=== PATIENT | female | born 1995 | race Caucasian/White ===

== ENCOUNTER → 2023-04-11 11:05 | Outpatient (BNVA) | payer MEDICAID, SELFPAY | PROVIDERS: Visit Provider Physician Assistant ==

== ENCOUNTER 2023-04-13 08:08 | Outpatient (AMB) | payer OTHER, SELFPAY ==
--- NOTE | 2023-04-13 11:40 | A.OFFVIS_ITS ---
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 HPI Details Start time: 11.40am, End time: 12.13pm ?I spent 28 minutes speaking with the patient on the phone plus an additional 5 minutes reviewing and updating records for a total of 33 minutes HPI Comments History of Present Illness Details Previous weight loss efforts: self diet and exercise Wakes up: 5.30am, Sleeps: 9pm, naps: 12-1pm Breakfast: skips Lunch: occasionally at 1pm (sandwich) Dinner: 6.30pm (rice, meat, beans) Snacks: 2pm (chips with soda), 8pm (oreos and milk) Exercise: has a home treadmill and bike Fluids: Coffee: 1 cup/d (cream and sugar), tea: none, soda: none now, a lot before, juice: 1 glass per day, ETOH: none PFSH Medical History (Updated 04/13/23 @ 11:42 by Warren Dunn MD) Morbid obesity Surgical History (Updated 04/11/23 @ 11:43 by Ondina South CMA) No history of previous surgery Family History (Updated 04/11/23 @ 11:45 by Ondina South CMA) Mother Hypertension Fibromyalgia Arthritis Diabetes Father Family history unknown Daughter No problems noted. Daughter No problems noted. Son Autism Son No problems noted. Social History (Updated 04/11/23 @ 11:43 by Ondina South CMA) Alcohol intake: current Alcohol intake frequency: holidays/special occasions only Patient Tobacco Use Status: Never used Tobacco Assessment & Plan Assessment & Plan (1) Morbid obesity: Code(s): E66.01 - Morbid (severe) obesity due to excess calories Plan: 1.? Plan for lap sleeve gastrectomy. If diaphragmatic or ventral hernias are present at time of surgery, these will be repaired laparoscopically as well. 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 I emphasized the importance of close follow-up, adherence to instructions and good communication. 2. Nutritional counseling. Start with 2 plant-based organic Pure protein (buy at [employer], [employer], [employer], [facility]) shakes (1/2 scoop in 8oz low fat unsweetened almo nd milk each) at 8am-10am and 11am-1pm, 1 protein bar (Zone Perfect protein bars, buy at [employer], ?[employer], [facility], or [employer]) at 2pm-4pm, 1/2 bar at 5-6pm, dinner at 7pm (10 forks of protein and 10 forks of salad/vegetables) , 1/2 bar at 9-10pm and one more protein bar after dinner at 11pm-1am. 2. Nutritional counseling. Start with 2 CELEBRATE REBUILD protein (buy at hospital[facility] [employer] [facility]) shakes (ONE scoop EACH in 8oz low fat unsweetened almond milk each) at 7am-9am and 10am-12pm, 1 protein bar (CELEBRATE protein bars, buy at [facility] [employer] [facility]) at 2pm-4pm, dinner at 5pm (8 forks of protein and 8 forks of salad/vegetables) AND one more protein bar after dinner at 7pm-9pm. So you do 2 protein shakes, 2 protein bars and one meal per day. Meal to include lean meat (beef, fish, pork, turkey, chicken), or tunisian yogurt, or egg whites, or beans with a salad with olive oil and fruits (berries, pears, apples, kiwi). Avoid salt, breads, potatoes, rice, pasta, desserts. 3. Each shake would be drunk slowly, like coffee in a period of 2 hours. You may add your coffee into shakes, if flavors match. 4. Cut each bar in 4 pieces and eat each piece in 30min ?to make each bar last 2 hours. 5. I emphasized the importance of measuring accurately the food portion and measure it when serving the food in plate 6. The meal portions include 8 full-size forks of meat and 8 full-size forks of salad. You always eat the meat portion but you can replace up to 4 forks for salad/vegetables with rice, potatoes or pasta, or a fruit ?if you like. The less you do it the better weight loss will be. 7. One full-size fork is what it can be scooped on the fork without falling aside and not what can be bit with the fork. Use regular forks like those you find in a typical restaurant. 8.? Please send me weight measurements as soon as possible and then once a week. Always include your diet and exercise plan. 9. Start treadmill with an incline of 4.0 and speed of 3.0. Increase incline by 1 every 3 min to a max incline of 10.0, stay 3min at 8.0 and then return to 4.0 and repeat same steps until calorie goal is met. Goal is to burn 2000 calories per week on exercise, which means either 300 calories daily, or 400 calories 5 days per week, or 500 calories 4 days per week, or 650 calories 3 days per week. 10.?It is important of avoiding and for at least 18 months postoperatively and has been discussed at the infosession. 11. Goal is to lose at least 1.5-2lbs per week 12. Goal to lose 10% of your weight before surgery, which is about 24lbs. Ultimate weight goal: 216lbs before surgery 13. Please follow the diet plan exactly without any change. If you don't like something about the plan or you feel hungry you need to communicate with me so I can help you revise the plan. You should not change the plan yourself. Orders: Orders Insulin Today E66.01 - Morbid (severe) obesity due to excess calories Comprehensive Met. Panel Today E66.01 - Morbid (severe) obesity due to excess calories Vitamin B1 Today E66.01 - Morbid (severe) obesity due to excess calories Vitamin A Today E66.01 - Morbid (severe) obesity due to excess calories H Pylori Breath Test Today E66.01 - Morbid (severe) obesity due to excess calories Vitamin D 25-OH Total Today E66.01 - Morbid (severe) obesity due to excess calories ECG 12 lead EKG Today E66.01 - Morbid (severe) obesity due to excess calories Lipid Panel Today E66.01 - Morbid (severe) obesity due to excess calories IRON PROFILE Today E66.01 - Morbid (severe) obesity due to excess calories Complete Blood Count Auto Diff Today E66.01 - Morbid (severe) obesity due to excess calories Vitamin B12 and Folate Today E66.01 - Morbid (severe) obesity due to excess calories Zinc Today E66.01 - Morbid (severe) obesity due to excess calories C Reactive Protein Today E66.01 - Morbid (severe) obesity due to excess calories Ferritin Today E66.01 - Morbid (severe) obesity due to excess calories PTHI Today E66.01 - Morbid (severe) obesity due to excess calories TSH reflex Free T4 Today E66.01 - Morbid (severe) obesity due to excess calories Hemoglobin A1c Today E66.01 - Morbid (severe) obesity due to excess calories US abdomen comp w elastography Today E66.01 - Morbid (severe) obesity due to excess calories XR chest 2V Today E66.01 - Morbid (severe) obesity due to excess calories FL upper GI w air Today E66.01 - Morbid (severe) obesity due to excess calories Referrals Behavioral Health Referral E66.01 - Morbid (severe) obesity due to excess calories Nutrition/Dietitian Referral E66.01 - Morbid (severe) obesity due to excess calories Telehealth Telehealth Location of provider rendering services: practice address Location of patient: address on file Patient Identification confirmed using: Name, : Yes Telehealth method: voice only Patient verbally consented to treatment: Yes Patient verbally consented to billing insurance company: Yes Patient informed of any privacy concerns related to visit: Yes Minutes spent on Phone/Video with Pt.: 33 Coding Level of Care Code Tele New Pt Level 3 (85383) Diagnoses Morbid obesity E66.01 Time Spent (min) 33
[2023-04-13 12:05] VITALS: BMI 48.6
== END 2023-04-13 12:14 | disposition home or self-care (01) ==
LOC: HO.HBS 08:08
PROVIDERS: PCP Internal Medicine; Visit Provider Surgery
DX: E66.01 Morbid (severe) obesity due to excess calories (principal)
CPT/HCPCS: 99203

== ENCOUNTER → 2023-04-13 08:08 | Outpatient (BNVA) | payer OTHER, SELFPAY | PROVIDERS: PCP Internal Medicine; Visit Provider Surgery ==

== ENCOUNTER 2023-04-13 16:39 | Outpatient (REF) | payer OTHER, SELFPAY | END 2023-04-13 16:40 | disposition home or self-care (01) | LOC: HO.LNP 16:39 | PROVIDERS: Visit Provider Surgery | DX: Z13.89 Encounter for screening for other disorder (principal) ==

== ENCOUNTER 2023-04-16 10:10 | Outpatient (REF) | payer OTHER, SELFPAY ==
--- NOTE | ~2023-04-16 | XR_ITS ---
EXAMINATION: XR CHEST CLINICAL INFORMATION: Morbid (severe) obesity due to excess calories COMPARISON: None available. TECHNIQUE: 2 views of the chest were obtained. FINDINGS: No significant abnormality is noted involving the heart, lungs, mediastinum, bony thorax or soft tissues. XR/XR chest 2V IMPRESSION: Unremarkable examination.
[2023-04-16 10:39] LABS: MANUAL DIFF FLAG NO
[2023-04-16 11:12] LABS: Estimated Average Glucose 97 mg/dL
[2023-04-16 11:17] LABS: Basophils Percent Auto 0.8 % (0-2); Eosinophils Absolute Auto 0.2 X10*3/uL (0.0-0.4); Hematocrit 36.8 % (37.0-47.0); Hemoglobin 10.9 g/dl (12.0-16.0); Imm Gran Abs Auto 0.03 X10*3/uL (0.00-0.03); Imm Gran Pct Auto 0.6 % (0.0-0.4); Lymphocytes Absolute Auto 1.7 X10*3/uL (1.2-4.9); Lymphocytes Percent Auto 32.4 % (20-40); Mean Corpuscular HGB Conc 29.6 g/dl (31.0-35.0); Mean Corpuscular Hemoglobin 21.1 pg (27.0-33.0); Mean Corpuscular Volume 71.3 fL (80.0-98.0); Mean Platelet Volume 10.8 fL (9.4-12.3); Monocytes Absolute Auto 0.5 X10*3/uL (0.1-1.2); Monocytes Percent Auto 10.3 % (2-11); Neutrophils Absolute Auto 2.7 x10*3/uL (2.0-8.3); Neutrophils Percent Auto 51.9 % (45-73); Platelet Count 233 X10*3/uL (160-400); Red Blood Count 5.16 X10*6/uL (4.20-5.50); Red Cell Distribution Width 14.8 % (11.0-16.0); White Blood Count 5.2 X10*3/uL (4.8-10.8)
[2023-04-16 11:40] LABS: Alanine Aminotransferase 15 U/L (0-31); Albumin Level 4.1 g/dL (3.5-5.0); Alkaline Phosphatase 101 U/L (39-117); Anion Gap 11 (12-20); Aspartate Amino Transferase 14 U/L (5-31); Bilirubin Total 0.4 mg/dL (0.0-1.0); Blood Urea Nitrogen 12 mg/dL (9-16); C Reactive Protein 1.41 mg/dL (< or = 0.50); Calcium 8.9 mg/dL (8.4-10.2); Carbon Dioxide 24 mmol/L (22-29); Chloride 108 mmol/L (96-108); Cholesterol 146 mg/dL (<200); Estimated Glomerular Filt Rate > 60; Glucose Random 91 mg/dL (60-115); HDL Cholesterol 48 mg/dL (>40); Iron 46 mcg/dL (30-160); LDL Cholesterol Calculated 81 mg/dL (<100); Percent Iron Saturation 17 % (15-50); Potassium 3.9 mmol/L (3.3-5.1); Sodium 139 mmol/L (135-145); Total Iron Binding Capacity 276 mcg/dL (228-428); Total Protein 7.5 g/dL (6.5-8.0); Triglycerides 85 mg/dL (<150); Unsaturated Iron Binding 230 ug/dL
[2023-04-16 11:57] LABS: Ferritin 90 ng/mL (10-122); Insulin 14 uU/mL (2-29); TSH reflex Free T4 2.06 uIU/mL (0.32-4.0); Vitamin D 25-OH Total 13.6 ng/mL (>30)
[2023-04-16 12:06] LABS: Folate 5.6 ng/mL (> or = 4.0); Vitamin B12 336 pg/mL (200-900)
[2023-04-19 16:29] LABS: Calcium (PTHI) 8.7 mg/dL (8.6-10.2); PTHI 51 pg/mL (16-77)
[2023-04-20 00:59] LABS: Zinc 75 mcg/dL (60-130)
[2023-04-20 11:18] LABS: Vitamin A 53 mcg/dL (38-98)
[2023-04-23 06:48] LABS: Vitamin B1 7 nmol/L (8-30)
== END 2023-04-16 10:11 | disposition home or self-care (01) ==
LOC: HO.LAB 10:10
PROVIDERS: PCP Surgery; Visit Provider Surgery
DX: E66.01 Morbid (severe) obesity due to excess calories (principal)
CPT/HCPCS: 36415; 71046; 80053; 80061; 82306; 82607; 82728; 82746; 83036; 83525; 83540; 83970; 84425; 84443; 84590; 84630; 85025; 86140

== ENCOUNTER 2023-05-04 08:00 | Outpatient (AMB) | payer OTHER, SELFPAY ==
--- NOTE | 2023-05-04 08:28 | MHC.OFFVISWM ---
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 Allergies amoxicillin [AMOXICILLIN] Allergy (Unknown, Verified 05/04/23 08:45) HIVES HPI TV Follow Up SWL - 1ST HPI Details Start time: 8.20am, End time: 8.40am ?I spent 15 minutes speaking with the patient on the phone plus an additional 5 minutes reviewing and updating records for a total of 20 minutes HPI Comments History of Present Illness Details Is doing [facility] Medical History (Updated 04/23/23 @ 13:19 by Warren Dunn MD) Morbid obesity Surgical History (Updated 04/11/23 @ 11:43 by Ondina South CMA) No history of previous surgery Family History (Updated 04/11/23 @ 11:45 by Ondina South CMA) Mother Hypertension Fibromyalgia Arthritis Diabetes Father Family history unknown Daughter No problems noted. Daughter No problems noted. Son Autism Son No problems noted. Social History (Updated 04/11/23 @ 11:43 by Ondina South CMA) Alcohol intake: current Alcohol intake frequency: holidays/special occasions only Patient Tobacco Use Status: Never used Tobacco Physical Exam Vital Signs: BMI result Body Mass Index 48.9 Assessment & Plan Assessment & Plan (1) Morbid obesity: Code(s): E66.01 - Morbid (severe) obesity due to excess calories Plan 1. Continue same nutritional plan of 2 CELEBRATE REBUILD protein (ONE scoop EACH in 8oz low fat unsweetened almond milk each) at 7am-9am and 10am-12pm, 1 protein bar (CELEBRATE protein bars) at 2pm-4pm, dinner at 5pm (8 forks of protein and 8 forks of salad/vegetables) AND one more protein bar after dinner at 7pm-9pm. 2. Continue treadmill with an incline of 4.0 and speed of 3.0. Increase incline by 1 every 3 min to a max incline of 10.0, stay 3min at 8.0 and then return to 4.0 and repeat same steps until calorie goal is met. Goal is to burn 2000 calories per week on exercise, which means either 300 calories daily, or 400 calories 5 days per week, or 500 calories 4 days per week, or 650 calories 3 days per week. 3. Send me weight measurements weekly on Wednesdays Telehealth Telehealth Location of provider rendering services: practice address Location of patient: address on file Patient Identification confirmed using: Name, : Yes Telehealth method: voice only Patient verbally consented to treatment: Yes Patient verbally consented to billing insurance company: Yes Patient informed of any privacy concerns related to visit: Yes Minutes spent on Phone/Video with Pt.: 20 Coding Level of Care Code Tele Est Pt Level 3 (65114) Diagnoses Morbid obesity E66.01 Time Spent (min) 20
[2023-05-04 08:37] VITALS: BMI 48.9
== END 2023-05-04 09:15 | disposition home or self-care (01) ==
LOC: HO.HBS 08:46
PROVIDERS: PCP Surgery; Visit Provider Surgery
DX: E66.01 Morbid (severe) obesity due to excess calories (principal)
CPT/HCPCS: 99213

== ENCOUNTER → 2023-05-04 08:03 | Outpatient (REF) | payer OTHER, SELFPAY ==
--- NOTE | 2023-05-04 08:07 | ECG_ITS ---
Test Reason : E66.01 Blood Pressure : / mmHG Vent. Rate : 075 BPM Atrial Rate : 075 BPM P-R Int : 172 ms QRS Dur : 074 ms QT Int : 414 ms P-R-T Axes : 050 051 023 degrees QTc Int : 462 ms Normal sinus rhythm Normal ECG No previous ECGs available Referred By: Warren Dunn Electronically Signed By:IZAIAH ROY MD
[2023-05-07 15:08] LABS: H Pylori Breath Test Positive (Negative)
== END ==
LOC: HO.CARD 08:03
PROVIDERS: PCP Surgery; Visit Provider Surgery
DX: E66.01 Morbid (severe) obesity due to excess calories (principal)
CPT/HCPCS: 83013; 93005; 99211

== ENCOUNTER 2023-05-05 16:36 | Outpatient (REF) | payer OTHER, SELFPAY | END 2023-05-05 16:37 | disposition home or self-care (01) | LOC: HO.LNP 16:36 | PROVIDERS: Visit Provider Surgery | DX: Z13.89 Encounter for screening for other disorder (principal) ==

== ENCOUNTER 2023-05-05 16:37 | Outpatient (REF) | payer OTHER, SELFPAY | END 2023-05-05 16:38 | disposition home or self-care (01) | LOC: HO.LNP 16:37 | PROVIDERS: Visit Provider Surgery | DX: Z13.89 Encounter for screening for other disorder (principal) ==

== ENCOUNTER 2023-05-18 11:38 | Outpatient (AMB) | payer OTHER, SELFPAY ==
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
== END 2023-05-18 12:30 | disposition home or self-care (01) ==
LOC: HO.HBST 11:38
PROVIDERS: PCP Surgery; Visit Provider Counselor Mental Health
DX: F43.29 Adjustment disorder with other symptoms (principal)
CPT/HCPCS: 90791

== ENCOUNTER → 2023-05-18 11:38 | Outpatient (BNVA) | payer OTHER, SELFPAY | PROVIDERS: PCP Surgery; Visit Provider Counselor Mental Health ==

== ENCOUNTER 2023-05-19 07:32 | Outpatient (REF) | payer OTHER, SELFPAY ==
--- NOTE | ~2023-05-19 | US_ITS ---
EXAMINATION: US COMPLETE ABDOMEN WITH LIVER ELASTOGRAPHY CLINICAL INFORMATION: Morbid obesity. COMPARISON: None available. TECHNIQUE: Real-time imaging of the abdominal viscera. Noninvasive ultrasound liver fibrosis assessment is performed using Mackenzie ElastPQ point quantification shear wave elastography (2D-SWE) with a C5-2 MHz transducer. Multiple elastography samples are obtained. FINDINGS: PANCREAS: Normal. The visualized pancreatic head and body are normal in appearance. The remainder of the pancreas is obscured from visualization by the overlying bowel gas. ABDOMINAL AORTA: The proximal, middle, and distal aortic segments are normal in caliber. INFERIOR VENA CAVA: Visualized portions are normal. LIVER: The liver demonstrates normal contour and slightly increased echogenicity. No focal lesion or intrahepatic biliary duct dilatation. The right lobe measures 20.0 cm in length. The left lobe measures 11.3 cm in length. Portal flow is towards the liver (hepatopetal). Shear wave liver elastography median stiffness is 2.01 m/s (reference: normal median stiffness is 1.3 m/s or less). IQR/median stiffness to assess sampling precision is 0.15 (reference: good quality data set is IQR/median stiffness of 0.15 or less). GALLBLADDER: Normal. The gallbladder is physiologically distended without evidence of stones, sludge, polyps, wall thickening or pericholecystic fluid. COMMON BILE DUCT: Normal in caliber measuring 0.2 cm in diameter. RIGHT KIDNEY: Normal. No hydronephrosis. No renal calculi or focal parenchymal lesions. The kidney measures 12.0 cm in maximum dimension. LEFT KIDNEY: Normal. No hydronephrosis. No renal calculi or focal parenchymal lesions. The kidney measures 12.8 cm in maximum dimension. SPLEEN: Normal. The spleen measures 11.8 cm in maximum dimension. FREE FLUID: None. US/US abdomen comp w elastography IMPRESSION: 1. There is hepatomegaly. 2. There is slight generalized increase in hepatic echotexture, consistent with fatty infiltration or hepatocellular disease. Please correlate clinically. No focal hepatic mass or intrahepatic biliary dilatation is seen. 3. Liver elastography: Measurements are suggestive of compensated advanced chronic liver disease but need further test for confirmation. REFERENCE: Society of Radiologists in Ultrasound Liver Stiffness Thresholds (2020): LIVER STIFFNESS THRESHOLDS: *Liver Stiffness equal or less than 1.3 m/s: High probability of being normal. *Liver Stiffness less than 1.7 m/s: In the absence of other known clinical signs, rules out compensated advanced chronic liver disease. *Liver Stiffness 1.7-2.1 m/s: Suggestive of compensated advanced chronic liver disease but need further test for confirmation. *Liver Stiffness over 2.1 m/s: Rules in compensated advanced chronic liver disease. *Liver Stiffness over 2.4 m/s: Suggestive of clinically significant portal hypertension. QUALITY OF DATA SET: *IQR/Median value equal or less than 0.15 implies a quality data set. *IQR/Median value over 0.15 implies a poor quality data set. SIGNIFICANT CHANGE FROM PRIOR EXAM: Significant change if liver stiffness measurement is 10% or greater from prior exam. OTHER CONSIDERATIONS: The stage of liver fibrosis may be overestimated in the setting of acute hepatitis, liver inflammation, elevated liver function tests, hepatic vascular congestion, obstructive cholestasis, non-fasting state, and infiltrative diseases such as amyloidosis and lymphoma. In some patients with NAFLD, the liver stiffness thresholds for compensated advanced chronic liver disease may be lower. In causes other than viral hepatitis and NAFLD, liver stiffness thresholds are not well established.
== END 2023-05-19 07:33 | disposition home or self-care (01) ==
LOC: HO.US 07:32
PROVIDERS: PCP Surgery; Visit Provider Surgery
DX: E66.01 Morbid (severe) obesity due to excess calories (principal)
CPT/HCPCS: 76705; 76981

== ENCOUNTER 2023-05-20 15:58 | Outpatient (AMB) | payer OTHER, SELFPAY ==
--- NOTE | 2023-05-20 15:45 | MHC.AMNUTRGE ---
Intake Intake Visit Reasons: VIDEO Initial Nutrition SWL Allergies amoxicillin [AMOXICILLIN] Allergy (Unknown, Verified 05/04/23 08:45) [facility]UR[place] KARLA Nutrition Diet Assmnt Details very stressed because she doesn't know what she is allowed to eat . struggling with growing up eating Sudanese food and feels that she is not able to enjoy those flavors anymore. Is eating grilled chicken with salad and is feeling very bored and sad about this. Does not even enjoy this. Today we discussed how important it is to enjoy the foods we eat. I provided her with the [place]ese inspired recipe book which she feels would be extremely helpful. the shakes are amazing really enjoys them and wants to continue. Patient completed all online classes and scored very well. She has no questions Lifestyle Food frequency Grains/pasta/breads/cereal (carbs): daily and Meats/poultry/fish (protein): daily (no fish ) Learning/Education Readiness to learn excellent Stages of change action Educational materials provided Yes Most Recent Diabetes Results: Cholesterol 146 mg/dL (<200) 04/16/23 HDL Cholesterol 48 mg/dL (>40) 04/16/23 Triglycerides 85 mg/dL (<150) 04/16/23 Creatinine 0.66 mg/dL (0.5-1.4) 04/16/23 Blood Urea Nitrogen 12 mg/dL (9-16) 04/16/23 Sodium 139 mmol/L (135-145) 04/16/23 Potassium 3.9 mmol/L (3.3-5.1) 04/16/23 Chloride 108 mmol/L (96-108) 04/16/23 Carbon Dioxide 24 mmol/L (22-29) 04/16/23 Calcium 8.9 mg/dL (8.4-10.2) 04/16/23 AST 14 U/L (5-31) 04/16/23 ALT 15 U/L (0-31) 04/16/23 Total Protein 7.5 g/dL (6.5-8.0) 04/16/23 Albumin 4.1 g/dL (3.5-5.0) 04/16/23 [facility] Medical History (Updated 05/11/23 @ 21:55 by Warren Dunn MD) Morbid obesity Surgical History (Updated 11/06/23 @ 11:43 by Ondina South CMA) No history of previous surgery Family History (Updated 04/11/23 @ 11:45 by Ondina South CMA) Mother Hypertension Fibromyalgia Arthritis Diabetes Father Family history unknown Daughter No problems noted. Daughter No problems noted. Son Autism Son No problems noted. Social History (Updated 04/11/23 @ 11:43 by Ondina South CMA) Alcohol intake: current Alcohol intake frequency: holidays/special occasions only Patient Tobacco Use Status: Never used Tobacco Assessment & Plan Assessment & Plan (1) Morbid obesity: Code(s): E66.01 - Morbid (severe) obesity due to excess calories Plan Patient is cleared from a nutrition standpoint for bariatric surgery. Encouraged communication with office as needed, a follow-up appointment was offered for more support, but patient declined at this time Telehealth Telehealth Location of provider rendering services: practice address Location of patient: address on file Patient Identification confirmed using: Name, : Yes Telehealth method: video Patient verbally consented to treatment: Yes Patient verbally consented to billing insurance company: Yes Patient informed of any privacy concerns related to visit: Yes Minutes spent on Phone/Video with Pt.: 30 Coding Level of Care Code Nutr Indiv Intake (78258) Diagnoses Morbid obesity E66.01 Time Spent (min) 30
== END 2023-05-20 16:18 | disposition home or self-care (01) ==
LOC: HO.HBS 15:58
PROVIDERS: PCP Surgery; Visit Provider Dietitian, Registered
DX: E66.01 Morbid (severe) obesity due to excess calories (principal)

== ENCOUNTER → 2023-05-20 15:58 | Outpatient (BNVA) | payer OTHER, SELFPAY | PROVIDERS: PCP Surgery; Visit Provider Dietitian, Registered | DX: E66.01 Morbid (severe) obesity due to excess calories (principal) | CPT/HCPCS: 97802 ==

== ENCOUNTER 2023-05-27 08:09 | Outpatient (AMB) | payer OTHER, SELFPAY ==
--- NOTE | 2023-05-27 08:09 | A.OFFVIS_ITS ---
Intake VS Expanded 05/27/23 09:02 Height 4 ft 11 in Weight 237 lb 2 oz BMI 47.9 Body Fat % 45 Body Fat Mass 106.7 Fat Free Mass 132.8 Visceral Fat Rating 19 Body Water % 40 Body Water Mass 94.8 Basal Metabolic Rate/Score 1,660 Intake Visit Reasons: TV Follow Up SWL Allergies amoxicillin [AMOXICILLIN] Allergy (Unknown, Verified 05/04/23 08:45) HIVES HPI TV Follow Up SWL HPI Details Start time: 8.05am to 8.15am, and 8.59am to 9.09am ?I spent 15 minutes speaking with the patient on the phone plus an additional 5 minutes reviewing and updating records for a total of 20 minutes HPI Comments History of Present Illness Details Overall weight loss: 3.5lbs, or 1.45% TBWL Is doing 3 Celebrate Rebuild protein shake ( 1 scoop in 8oz almond milk), one Celebrate protein bar and one meal (7 forks of protein and 7 forks Exercise: Gym x5days per week doing treadmill for 250-300 calories [facility] Medical History (Updated 05/11/23 @ 21:55 by Warren Dunn MD) Morbid obesity Surgical History (Updated 04/11/23 @ 11:43 by Ondina South CMA) No history of previous surgery Family History (Updated 04/11/23 @ 11:45 by Ondina South CMA) Mother Hypertension Fibromyalgia Arthritis Diabetes Father Family history unknown Daughter No problems noted. Daughter No problems noted. Son Autism Son No problems noted. Social History (Updated 04/11/23 @ 11:43 by Ondina South CMA) Alcohol intake: current Alcohol intake frequency: holidays/special occasions only Patient Tobacco Use Status: Never used Tobacco Assessment & Plan Assessment & Plan (1) Morbid obesity: Code(s): E66.01 - Morbid (severe) obesity due to excess calories Plan: 1. Continue same nutritional plan of 3 Celebrate Rebuild protein shake ( 1 scoop in 8oz almond milk), one Celebrate protein bar and one meal (7 forks of protein and 7 forks of salad or vegetables) 2. You do not need another bar at night 3. Exercise: Try to use the home treadmill for 300 calories daily in the evenings after your children go to bed 4. Continue to send me weight measurements weekly on Wednesdays Telehealth Telehealth Location of provider rendering services: practice address Location of patient: address on file Patient Identification confirmed using: Name, : Yes Telehealth method: voice only Patient verbally consented to treatment: Yes Patient verbally consented to billing insurance company: Yes Patient informed of any privacy concerns related to visit: Yes Minutes spent on Phone/Video with Pt.: 20 Coding Level of Care Code Tele Est Pt Level 3 (12044) Diagnoses Morbid obesity E66.01 Time Spent (min) 20
[2023-05-27 09:02] VITALS: BMI 47.9
== END 2023-05-27 09:10 | disposition home or self-care (01) ==
PROVIDERS: PCP Surgery; Visit Provider Surgery
DX: E66.01 Morbid (severe) obesity due to excess calories (principal)
CPT/HCPCS: 99213

== ENCOUNTER → 2023-05-27 08:09 | Outpatient (BNVA) | payer OTHER, SELFPAY | PROVIDERS: PCP Surgery; Visit Provider Surgery ==

== ENCOUNTER 2023-06-14 08:39 | Outpatient (REF) | payer OTHER, SELFPAY ==
[2023-06-17 09:55] LABS: H Pylori Breath Test Positive (Negative)
== END 2023-06-14 08:40 | disposition home or self-care (01) ==
LOC: HO.LNP 08:39
PROVIDERS: PCP Surgery; Visit Provider Physician Assistant Surgical
DX: E66.01 Morbid (severe) obesity due to excess calories (principal)
CPT/HCPCS: 83013; 99211

== ENCOUNTER 2023-06-17 08:02 | Outpatient (AMB) | payer OTHER, SELFPAY ==
--- NOTE | 2023-06-17 08:17 | A.OFFVIS_ITS ---
Intake VS Expanded 06/17/23 08:22 Height 4 ft 11 in Weight 235 lb 8 oz BMI 47.6 Body Fat % 45 Body Fat Mass 106.1 Fat Free Mass 129.6 Visceral Fat Rating 19 Body Water % 40.1 Body Water Mass 94.5 Basal Metabolic Rate/Score 1,653 Intake Visit Reasons: TV Follow Up SWL Allergies amoxicillin [AMOXICILLIN] Allergy (Unknown, Verified 05/04/23 08:45) HIVES HPI TV Follow Up SWL HPI Details Start time: 8.09am, End time: 8.29am ?I spent 15 minutes speaking with the patient on the phone plus an additional 5 minutes reviewing and updating records for a total of 20 minutes HPI Comments History of Present Illness Details Overall weight loss: 4.9lbs, or 2% TBWL Is doing 2 Celebrate Rebuild protein shakes (1 scoop in 8oz almond milk), 2 Celebrate protein bars, one meal (7-8 forks of protein and 7-8 forks of salad or vegetables) Exercise: doing treadmill for 330 calories [facility] Medical History (Updated 05/11/23 @ 21:55 by Warren Dunn MD) Morbid obesity Surgical History (Updated 04/11/23 @ 11:43 by Ondina South CMA) No history of previous surgery Family History (Updated 04/11/23 @ 11:45 by Ondina South CMA) Mother Hypertension Fibromyalgia Arthritis Diabetes Father Family history unknown Daughter No problems noted. Daughter No problems noted. Son Autism Son No problems noted. Social History (Updated 04/11/23 @ 11:43 by Ondina South CMA) Alcohol intake: current Alcohol intake frequency: holidays/special occasions only Patient Tobacco Use Status: Never used Tobacco Assessment & Plan Assessment & Plan (1) Morbid obesity: Code(s): E66.01 - Morbid (severe) obesity due to excess calories Plan: 1. Continue same nutritional plan of 2 Celebrate Rebuild protein shakes (1 scoop in 8oz almond milk), 2 Celebrate protein bars, one meal (7-8 forks of protein and 7-8 forks of salad or vegetables) 2. Exercise: continue treadmill for 330 calories at least 6 days per week. . Goal is to burn 2000 calories per week on exercise, which means either 300 calories daily, or 400 calories 5 days per week, or 500 calories 4 days per week, or 650 calories 3 days per week. 3. Continue to send me weight measurements weekly on Telehealth Telehealth Location of provider rendering services: practice address Location of patient: address on file Patient Identification confirmed using: Name, : Yes Telehealth method: voice only Patient verbally consented to treatment: Yes Patient verbally consented to billing insurance company: Yes Patient informed of any privacy concerns related to visit: Yes Minutes spent on Phone/Video with Pt.: 20 Coding Level of Care Code Tele Est Pt Level 3 (18073) Diagnoses Morbid obesity E66.01 Time Spent (min) 20
[2023-06-17 08:22] VITALS: BMI 47.6
== END 2023-06-17 08:29 | disposition home or self-care (01) ==
LOC: HO.HBS 08:02
PROVIDERS: Visit Provider Surgery
DX: E66.01 Morbid (severe) obesity due to excess calories (principal)
CPT/HCPCS: 99213

== ENCOUNTER → 2023-06-17 08:02 | Outpatient (BNVA) | payer OTHER, SELFPAY | PROVIDERS: Visit Provider Surgery ==

== ENCOUNTER 2023-07-04 08:58 | Outpatient (REF) | payer OTHER, SELFPAY ==
--- NOTE | ~2023-07-04 | FL_ITS ---
EXAMINATION: XR FLUOROSCOPY UPPER GI WITH AIR CLINICAL INFORMATION: Preop evaluation prior to bariatric surgery COMPARISON: None TECHNIQUE: Fluoroscopic air contrast upper GI examination was performed utilizing standard techniques with thin and thick barium and effervescent granules. Numerous spot images were obtained. FINDINGS: Lateral cine images of the oropharynx and hypopharynx demonstrate normal swallow mechanism with normal epiglottic inversion and soft palate elevation. No tracheal penetration, glottic or subglottic aspiration identified. No nasopharyngeal reflux present. Hypopharyngeal structures appear normal without evidence of mass or diverticulum. There was no significant cricopharyngeal achalasia. Dual and single contrast images of the esophagus demonstrate normal caliber, contour, and mucosal pattern. No evidence of stricture, mass, or ulcerations identified. Esophageal peristalsis was normal. No evidence of hiatus hernia identified. Gastroesophageal reflux seen up to the thoracic inlet Dual contrast and single contrast images of the stomach demonstrated mild fold thickening diffusely. No evidence of mass or ulceration. Mild prominence of the areae gastricae may indicate a mild degree of gastritis. Contrast freely passed into the gastric antrum and duodenal bulb without delay. Single and air-contrast images of the duodenal bulb demonstrate no abnormality. The duodenal sweep has a normal appearance, course, and mucosal fold appearance. The imaged proximal jejunum has a normal fold pattern and caliber. FLUOROSCOPY TIME: 2 minutes 47 seconds Number of Spot Images: 13 Number of Cine: 6 DOSE AREA PRODUCT: 2572 uGy-m2 (microgray-meter squared) FL/FL upper GI w air IMPRESSION: 1. Significant gastroesophageal reflux. 2. Findings suggesting mild gastritis. This procedure was performed by Adryan Rae PA-C, and supervised by Dr. Mcfarlane
== END 2023-07-04 08:59 | disposition home or self-care (01) ==
LOC: HO.XRAY 08:58
PROVIDERS: Visit Provider Surgery
DX: E66.01 Morbid (severe) obesity due to excess calories (principal)
CPT/HCPCS: 74246

== ENCOUNTER → 2023-07-04 09:00 | Outpatient (BNV) | payer OTHER, SELFPAY | PROVIDERS: Visit Provider Radiology Diagnostic Radiology | DX: Z01.818 Encounter for other preprocedural examination (principal) | CPT/HCPCS: 74246 ==

== ENCOUNTER 2023-07-08 08:01 | Outpatient (AMB) | payer OTHER, SELFPAY ==
--- NOTE | 2023-07-08 08:26 | A.OFFVIS_ITS ---
Intake VS Expanded 07/08/23 09:08 Height 4 ft 11 in Weight 233 lb BMI 47.1 Body Fat % 45 Body Fat Mass 104.8 Fat Free Mass 128.1 Visceral Fat Rating 19 Body Water % 40.2 Body Water Mass 93.6 Basal Metabolic Rate/Score 1,637 Intake Visit Reasons: TV Follow Up SWL Allergies amoxicillin [AMOXICILLIN] Allergy (Unknown, Verified 05/04/23 08:45) HIVES HPI TV Follow Up SWL HPI Details Start time: 8.20a m, End time: 8.40a m ?I spent 15 berto fifi speaking with the patient on the phone plus an add itional 5 minutes reviewing and upda ting records for a total of 20 minut es HPI Comments History of Present Illness Details Overall weight loss: 7.7lbs, or 3.2% TBWL Is doing 2 protein shakes, 2 protein bars and one meal (7-8 forks or protein and 7-8 forks of salad of vegetables) Exercise: is doing treadmill for 5 days per week [facility] Medical History (Updated 05/11/23 @ 21:55 by Warren Dunn MD) Morbid obesity Surgical History (Updated 04/11/23 @ 11:43 by Ondina South CMA) No history of previous surgery Family History (Updated 04/11/23 @ 11:45 by Ondina South CMA) Mother Hypertension Fibromyalgia Arthritis Diabetes Father Family history unknown Daughter No problems noted. Daughter No problems noted. Son Autism Son No problems noted. Social History (Updated 04/11/23 @ 11:43 by Ondina South CMA) Alcohol intake: current Alcohol intake frequency: holidays/special occasions only Patient Tobacco Use Status: Never used Tobacco Assessment & Plan Assessment & Plan (1) Morbid obesity: Code(s): E66.01 - Morbid (severe) obesity due to excess calories Plan: 1. Continue same nutritional plan of 2 Celebrate Rebuild protein shakes (1 scoop in 8oz almond milk), 2 Celebrate protein bars, one meal (7-8 forks of protein and 7-8 forks of salad or vegetables) 2. Exercise: continue treadmill for 330 calories at least 6 days per week. . Goal is to burn 2000 calories per week on exercise, which means either 300 calories daily, or 400 calories 5 days per week, or 500 calories 4 days per week, or 650 calories 3 days per week. 3. Continue to send me weight measurements weekly on Tuesdays Telehealth Telehealth Location of provider rendering services: practice address Location of patient: address on file Patient Identification confirmed using: Name, : Yes Telehealth method: voice only Patient verbally consented to treatment: Yes Patient verbally consented to billing insurance company: Yes Patient informed of any privacy concerns related to visit: Yes Minutes spent on Phone/Video with Pt.: 20 Coding Level of Care Code Tele Est Pt Level 3 (26652) Diagnoses Morbid obesity E66.01 Time Spent (min) 20
[2023-07-08 09:08] VITALS: BMI 47.1
== END 2023-07-08 09:13 | disposition home or self-care (01) ==
LOC: HO.HBS 08:02
PROVIDERS: Visit Provider Surgery
DX: E66.01 Morbid (severe) obesity due to excess calories (principal)
CPT/HCPCS: 99213

== ENCOUNTER → 2023-07-08 08:01 | Outpatient (BNVA) | payer OTHER, SELFPAY | PROVIDERS: Visit Provider Surgery ==

== ENCOUNTER 2023-07-15 07:58 | Outpatient (AMB) | payer OTHER, SELFPAY ==
--- NOTE | 2023-07-15 11:38 | MHC.OFFVISWM ---
Intake VS Expanded 07/15/23 11:43 Height 4 ft 11 in Weight 229 lb BMI 46.2 Body Fat % 45 Body Fat Mass 103 Fat Free Mass 125.9 Visceral Fat Rating 18 Body Water % 40.4 Body Water Mass 92.5 Basal Metabolic Rate/Score 1,622 Intake Visit Reasons: TV Pre Op LSG 07/21/23 Allergies amoxicillin [AMOXICILLIN] Allergy (Unknown, Verified 07/15/23 11:38) HIVES Medication List - Last Reconciled 07/15/23 by Warren Dunn MD bismuth subsalicylate 2 tabs PO QID 14 days cholecalciferol (vitamin D3) 125 mcg PO DAILY clarithromycin 500 mg PO Q12H clarithromycin 500 mg PO Q12H levofloxacin 500 mg PO DAILY mecobalamin (vitamin B12) 1,000 mcg sublingual DAILY metronidazole 500 mg PO Q8H omeprazole 40 mg PO DAILY omeprazole 40 mg PO DAILY ondansetron 4 mg PO Q12H pantoprazole 40 mg PO DAILY polyethylene glycol 3350 (Miralax) 17 grams PO DAILY sucralfate 10 mL PO BID thiamine HCl (vitamin B1) 100 mg PO DAILY HPI TV Pre Op LSG 07/21/23 HPI Details Start time: 11.32am, End time: 11.52am ?I spent 15 minutes speaking with the patient on the phone plus an additional 5 minutes reviewing and updating records for a total of 20 minutes [facility] Medical History (Updated 05/11/23 @ 21:55 by Warren Dunn MD) Morbid obesity Surgical History (Updated 04/11/23 @ 11:43 by Ondina South CMA) No history of previous surgery Family History (Updated 04/11/23 @ 11:45 by Ondina South CMA) Mother Hypertension Fibromyalgia Arthritis Diabetes Father Family history unknown Daughter No problems noted. Daughter No problems noted. Son Autism Son No problems noted. Social History (Updated 04/11/23 @ 11:43 by Ondina South CMA) Alcohol intake: current Alcohol intake frequency: holidays/special occasions only Patient Tobacco Use Status: Never used Tobacco Assessment & Plan Assessment & Plan (1) Morbid obesity: Code(s): E66.01 - Morbid (severe) obesity due to excess calories Plan: 1. Plan for lap sleeve gastrectomy including upper GI endoscopy. All tests has been completed and reviewed and the patient is cleared for the surgery. ?If diaphragmatic or ventral hernias are present at time of surgery, these will be repaired laparoscopically as well. 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 I emphasized the importance of close follow-up, adherence to instructions and good communication. So far she has proven to be an excellent communicator and very compliant with all our directions accomplishing a great weight loss. I believe that she is an excellent candidate and she is ready. 2. Preop prescriptions were provided and explained the purpose of each one. Need to be purchased preop. Start Pantoprazole now as you get it from the pharmacy, 1 pill per day. Sucralfate and Zofran are for after surgery as needed. 3. Bowel prep: please do 7 packets ?of Miralax mixing each one with a an 8oz glass of water, crystal light, gatorade zero, or propel ?on 07/19/23 and the same amount on 07/20/23. The Miralax you begin with one packet at a time in 8oz water or crystal light, gatorade zero, or propel ?as early in the day as you can and you do them back to back until you finish them. Continue the protein shakes during? the bowel prep. 4. Needs to purchase 1oz medicine cups . 5. Needs to purchase Children's liquid Tylenol for postop pain control. 6. Avoid aspirin, motrin, Advil, Aleve, Ibuprofen, Naproxyn. Tylenol is OK. 7. She needs to purchase the Celebrate 4:1 protein shakes from the hospital's gift shop. 8. Importance of adherence to postop folllow-up and recommendations was underscored and she understands that. 9. Stop food and bars as of tomorrow 07/16/23 and continue with 3 Celebrate REBUILD protein shakes (ONE scoop EACH in 8oz almond milk) at 7am-9am, 10am-12pm, 1pm-3pm and TWO more Celebrate REBUILD protein shakes with TWO scoops EACH in 8oz of almond milk at 4pm-6pm and 7pm-9pm 10. No soups, broths or V8 11. The patient's?medical?history has been reviewed and they are considered low risk for post op DVT and therefore DVT prophylaxis is not considered necessary. Travel after surgery was reviewed. The patient has not disclosed any travel plans during the first 30 days after surgery and they have been advised that within the first 30 days after surgery any bus, plane, train or car travel over 2 hours in duration is contraindicated due to the possibility of developing blood clots from immobility. Any travel, needs to include periods of ambulation of 10 minutes in duration every 2 hours.? Patient was instructed to discuss any plans for travel during this period with their bariatric surgeon.? 12. Please take at the day of surgery the following medications: NONE 13. Stop any control pills and don't use them for one month after surgery 14. Absolutely no smoking or vaping, or marijuana until the surgery and for at least the first 4 weeks. Only nicotine patches are allowed. 15. Send me weight measurements on Tuesday07/17/23 and then on 07/21/23 the day of surgery before you go to the hospital. 16. Avoid any steroids by mouth for any reason. Let me know if someone prescribes them to you 17. These instructions supersede anything else you read in the handbook, anything you watched in videos or classes or you were told by any other provider. If there is any conflict, you follow the above instructions and nothing else. Telehealth Telehealth Location of provider rendering services: practice address Location of patient: address on file Patient Identification confirmed using: Name, : Yes Telehealth method: voice only Patient verbally consented to treatment: Yes Patient verbally consented to billing insurance company: Yes Patient informed of any privacy concerns related to visit: Yes Minutes spent on Phone/Video with Pt.: 20 Coding Level of Care Code Tele Est Pt Level 3 (03836) Diagnoses Morbid obesity E66.01 Time Spent (min) 20
[2023-07-15 11:43] VITALS: BMI 46.2
== END 2023-07-15 11:53 | disposition home or self-care (01) ==
LOC: HO.HBS 07:58
PROVIDERS: PCP Internal Medicine; Visit Provider Surgery
DX: E66.01 Morbid (severe) obesity due to excess calories (principal)
CPT/HCPCS: 99213

== ENCOUNTER → 2023-07-15 07:58 | Outpatient (BNVA) | payer OTHER, SELFPAY | PROVIDERS: PCP Internal Medicine; Visit Provider Surgery ==

== ENCOUNTER → 2023-07-20 13:16 | Outpatient (BNVA) | payer OTHER, SELFPAY | PROVIDERS: Visit Provider Surgery ==

== ENCOUNTER 2023-07-26 | Outpatient (REF) | payer OTHER, SELFPAY ==
[2023-07-14 08:33] LABS: MANUAL DIFF FLAG NO
[2023-07-14 09:09] LABS: Basophils Percent Auto 0.9 % (0-2); Eosinophils Absolute Auto 0.1 X10*3/uL (0.0-0.4); Eosinophils Percent Auto 3.2 % (0-4); Hematocrit 36.8 % (37.0-47.0); Hemoglobin 11.2 g/dl (12.0-16.0); Imm Gran Abs Auto 0.01 X10*3/uL (0.00-0.03); Imm Gran Pct Auto 0.3 % (0.0-0.4); Lymphocytes Absolute Auto 1.4 X10*3/uL (1.2-4.9); Mean Corpuscular HGB Conc 30.4 g/dl (31.0-35.0); Mean Corpuscular Hemoglobin 21.6 pg (27.0-33.0); Mean Corpuscular Volume 70.9 fL (80.0-98.0); Mean Platelet Volume 11.1 fL (9.4-12.3); Monocytes Absolute Auto 0.5 X10*3/uL (0.1-1.2); Monocytes Percent Auto 14.3 % (2-11); Neutrophils Absolute Auto 1.5 x10*3/uL (2.0-8.3); Neutrophils Percent Auto 42.3 % (45-73); Platelet Count 204 X10*3/uL (160-400); Red Blood Count 5.19 X10*6/uL (4.20-5.50); Red Cell Distribution Width 14.2 % (11.0-16.0); White Blood Count 3.5 X10*3/uL (4.8-10.8)
[2023-07-14 09:16] LABS: Partial Thromboplastin Time 31.2 SEC (26.0-36.8)
[2023-07-14 09:18] LABS: Estimated Average Glucose 88 mg/dL; Hemoglobin A1c % 4.7 % (<6.0)
[2023-07-14 09:44] LABS: Alanine Aminotransferase 10 U/L (0-31); Albumin Level 4.1 g/dL (3.5-5.0); Alkaline Phosphatase 73 U/L (39-117); Anion Gap 12 (12-20); Aspartate Amino Transferase 12 U/L (5-31); Blood Urea Nitrogen 12 mg/dL (9-16); C Reactive Protein 1.05 mg/dL (< or = 0.50); Calcium 8.8 mg/dL (8.4-10.2); Carbon Dioxide 25 mmol/L (22-29); Chloride 105 mmol/L (96-108); Cholesterol 146 mg/dL (<200); Estimated Glomerular Filt Rate > 60; Glucose Random 98 mg/dL (60-115); HDL Cholesterol 45 mg/dL (>40); LDL Cholesterol Calculated 89 mg/dL (<100); Potassium 4.1 mmol/L (3.3-5.1); Sodium 138 mmol/L (135-145); Total Protein 7.5 g/dL (6.5-8.0); Triglycerides 60 mg/dL (<150)
[2023-07-14 09:58] LABS: Insulin 11 uU/mL (2-29); TSH reflex Free T4 0.93 uIU/mL (0.32-4.0)
[2023-07-18 10:25] VITALS: BMI 46.2
--- NOTE | 2023-07-20 09:42 | P.CONAN_ITS ---
HPI - Anesthesia Eval Consult details Narrative: 27yo F for Gastrectomy Sleeve,EGD,poss diaphragmatic hernia,poss ventral hernia,poss open, PMFSH Active Problems Active Problems: All Active Problems (Updated 05/11/23 @ 21:55 by Warren Dunn MD) H. pylori infection (Acute) Vitamin B1 deficiency (Acute) Vitamin B12 deficiency (Acute) Vitamin D deficiency (Acute) Morbid obesity (Acute) Past Medical History Medical History (Updated 05/11/23 @ 21:55 by Warren Dunn MD) Morbid obesity Family History Family History (Updated 04/11/23 @ 11:45 by Ondina South CMA) Mother Hypertension Fibromyalgia Arthritis Diabetes Father Family history unknown Daughter No problems noted. Daughter No problems noted. Son Autism Son No problems noted. Surgical History Surgical History (Updated 04/11/23 @ 11:43 by Ondina South CMA) No history of previous surgery Social History Social History (Updated 04/11/23 @ 11:43 by Ondina South CMA) Are you a primary cattle care worker to a significant other at home: No Do you presently have visiting nurse or other home services: No Alcohol intake: current Alcohol intake frequency: does not drink Patient Tobacco Use Status: Never used Tobacco Meds Allergies Allergy/AdvReac Type Severity Reaction Status Date / Time amoxicillin [AMOXICILLIN] Allergy Intermediate Hives Verified 07/18/23 10:28 (childhood allergy) Penicillins Allergy Intermediate Hives Verified 07/18/23 10:28 (childhood allergy) Exam Height,Weight and Vital Signs: Height 4 ft 11 in Weight 103.873 kg Pertinent Lab Results Pertinent Lab Results: Laboratory Tests 07/14/23 07/14/23 08:20 08:26 WBC 3.5 L RBC 5.19 Hgb 11.2 L Hct 36.8 L MCV 70.9 L MCH 21.6 L MCHC 30.4 L RDW 14.2 Plt Count 204 MPV 11.1 Immature Gran % (Auto) 0.3 Neut % (Auto) 42.3 L Lymph % (Auto) 39.0 [place] % (Auto) 14.3 H Eos % (Auto) 3.2 Baso % (Auto) 0.9 Lymph # (Auto) 1.4 [place] # (Auto) 0.5 Eos # (Auto) 0.1 Baso # (Auto) 0.0 Abs Immat Gran (auto) 0.01 Absolute Neuts (auto) 1.5 L Absolute Nucleated RBC 0.000 Nucleated RBC % (auto) 0.0 PT 12.0 INR 1.0 APTT 31.2 Sodium 138 Potassium 4.1 Chloride 105 Carbon Dioxide 25 Anion Gap 12 BUN 12 Creatinine 0.73 Estim Creat Clear Calc TNP Estimated GFR > 60 Random Glucose 98 Estimat Average Glucose 88 Hemoglobin A1c % 4.7 Insulin Level 11 Calcium 8.8 Total Bilirubin 1.0 AST 12 ALT 10 Alkaline Phosphatase 73 C-Reactive Protein 1.05 H Total Protein 7.5 Albumin 4.1 Triglycerides 60 Cholesterol 146 LDL Cholesterol, Calc 89 HDL Cholesterol 45 TSH 0.93 Blood Type O Positive Antibody Screen NEGATIVE Narrative Narrative: EKG 04/2023 Vent. Rate : 075 BPM Atrial Rate : 075 BPM P-R Int : 172 ms QRS Dur : 074 ms QT Int : 414 ms P-R-T Axes : 050 051 023 degrees QTc Int : 462 ms Normal sinus rhythm Normal ECG No previous ECGs available Assessment and Plan Assessment Anesthesia Assessment: Chart Reviewed
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
--- OUTSIDE RECORDS SUMMARY | 2023-07-21 07:56 | XMS_ITS | Continuity of Care Document ---
Author Name Unknown Organization [facility] Address [address] [place] [address] [address] [place] [address]- Care Team Providers Care Mate Chief Name Role Phone Noelle CHAVEZ, Lolis Primary Care Physician [facility] Date(s): 03/30/23 - 06/08/[address] [place] [address]- Attending Physician: José Haywood MD Referring Physician: Anthony Drake DMD Allergies, Adverse Reactions, Alerts Substance Reaction Severity [...] give 325mg per patient preference and re-dose [id number] within 4 hours, if needed. Patient should only receive a total of 650mg of Acetaminophen every 4 hours., Refills 0, Maintenance, Pain , Mild, 1... Start Date: 03/06/23 Status: Ordered aspirin 81 mg oral delayed release tablet 162 mg, 2, tablet, By Mouth, Daily, # 180 tablet, Refills 1, Tot. Refills 1, Maintenance, 03/20/23 16:32:00 EDT, Route to Pharmacy Electronically, [facility]/pharmacy #[id number], Partial fill upon patient request if the prescription is for a schedule II opioid . Start Date: 03/20/23 Stop Date: 4/12/24 Status: Ordered calcium carbonate 500 mg (200 [...] give 400mg per patient preference and re-dose [id number] within 8 hours if needed. Patient should [...] information Care Team Personnel Name: Noelle CHAVEZ, Gopalnm Position: Reference Physician Member Role: PCP Address: Address: [address] [place] [address]- Care Team Related Persons Name: SANJUANA WEST Address: home [address] [place] [address] Name: JAUN MEDEL Address: home [address] [place] [address] Name: LEONARD BEDOLLA Address: [address] Address: home [address] [place] [address] Name: NICO DIAZ Address: [address] Address: home [address] [place] [address]
--- OUTSIDE RECORDS SUMMARY | 2023-07-21 07:56 | XMS_ITS | Continuity of Care Document ---
Author Name Unknown Organization [facility] Address [address] [place] [address] [address] [place] [address]- Care Team Providers Care Electric Meter Installer Helper Name Role Phone Lolis Drake MD Primary Care Physician [facility] Date[facility]s): 08/11/22 - 09/10/22 [facility] [address] [place] [address]- Attending Physician: AdmNael conway Admitting Physician: Admtr, Nael Referring Physician: Admtr, Ar8 Allergies, Adverse Reactions, Alerts Substance Reaction Severity [...] Note: HEP B 22Admin Note: TD Medications ferrous sulfate 325 mg oral tablet 1 tablet = 325 mg, By Mouth, Daily, # 90 tablet, 1 Refills, Maintenance, 08/25/22 22:12:00 EDT, Tablet, [id number], Partial fill upon [...] Reference Physician Member Role: PCP Address: Address: [address] [place] [id number] Care Team Related Persons Name: SANJUANA WEST Address: home [address] [place] [address] Name: JAUN MEDEL Address: home [address] [place] [address] Name: LEONARD BEDOLLA Address: Address: home [address] [place] [address] [place]
--- OUTSIDE RECORDS SUMMARY | 2023-07-21 07:56 | XMS_ITS | Continuity of Care Document ---
Author Name Unknown Organization [facility] Address [address] [place] [address]- Care Team Providers Care Economics Professor Name Role Phone Noelle CHAVEZ, Lolis Primary Care Physician [phone] [facility]counter [facility] Date(s): 03/07/23 - 05/14/[address] [address]- Attending Physician: Kristan Erickson CNM Admitting Physician: [...] give 325mg per patient preference and re-dose [id number] within 4 hours, if needed. Patient should only receive a total of 650mg of Acetaminophen every 4 hours., Refills 0, Maintenance, Pain , Mild, 1... Start Date: 03/06/23 Status: Ordered aspirin 81 mg oral delayed release tablet 162 mg, 2, tablet, By Mouth, Daily, # 180 tablet, Refills 1, Tot. Refills 1, Maintenance, 03/20/23 16:32:00 EDT, Route to Pharmacy Electronically, [facility]/pharmacy #[id number], Partial fill upon patient request if the prescription is for a schedule II opioid drBahman. Start Date: 03/20/23 Stop Date: 09/16/23 Status: [...] give 400mg per patient preference and re-dose [id number] within 8 hours if needed. Patient should [...] Reference Physician Member Role: PCP Address: Address: [address] [place] [address]- Care Team Related Persons Name: SANJUANA WEST Address: home [address] [place] [address] Name: JAUN MEDEL Address: [address] [place] [address] Name: LEONARD BEDOLLA Address: Address: home [address] [place] [address] Name: NICO DIAZ Address: [address] Address: home [address] [place] [address] [place]
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
--- OUTSIDE RECORDS SUMMARY | 2023-07-21 07:56 | XMS_ITS | Continuity of Care Document ---
Author Name Unknown Organization [facility] Address [address] [place] [address]- Care Team Providers Care Linter Drier Operator Name Role Phone Lolis Drake MD Primary Care Physician [phone] Encounter [facility] Date(s): 02/21/23 - 03/23/23 [facility] [address] [address]- Allergies, Adverse Reactions, Alerts Substance Reaction Severity [...] give 325mg per patient preference and re-dose [id number] within 4 hours, if needed. Patient should only receive a total of 650mg of Acetaminophen every 4 hours., Refills 0, Maintenance, Pain , Mild, 1... Start Date: 03/06/23 Status: Ordered aspirin 81 mg oral delayed release tablet 162 mg, 2, tablet, By Mouth, Daily, # 180 tablet, Refills 1, Tot. Refills 1, Maintenance, 03/20/23 16:32:00 EDT, Route to Pharmacy Electronically, [facility]/pharmacy #[id number], Partial fill upon patient request if the [...] give 400mg per patient preference and re-dose [id number] within 8 hours if needed. Patient should [...] Most recent to oldest [Reference Range]: 1 Height 150 cm (02/26/23 4:51 PM) Weight 113.5 kg (02/26/23 4:51 PM) Social History Social History Type Response Smoking Status Never smoker entered on: 01/02/18 Sex Patient Care team information Care Team Personnel Name: Noelle CHAVEZ, Lolis Position: Reference Physician Member Role: PCP Address: Address: [address] [place] [address]- Care Team Related Persons Name: SANJUANA WEST Address: home [address] [place] [address] Name: JAUN MEDEL Address: home [address] [place] [address] Name: LEONARD BEDOLLA Address: Address: home [address] [place] [address] Name: NICO DIAZ Address: [address] Address: home [address] [place] [address] [place]
--- OUTSIDE RECORDS SUMMARY | 2023-07-21 07:56 | XMS_ITS | Continuity of Care Document ---
Author Name Unknown Organization [facility] Address [address] [place] [address] [address] [place] [address]- Care Team Providers Care Cable Ferryboat Operator Name Role Phone Lolis Drake MD Primary Care Physician Encounter [facility] Date(s): 06/25/22 - 09/10/22 [facility] [address] [place] [address]- Attending Physician: Ron MS,RD,LDN, Mony Dixon Referring Physician: Lolis Drake MD Allergies, Adverse Reactions, Alerts Substance Reaction [...] Reference Physician Member Role: PCP Address: Address: [address] [place] [address] Care Team Related Persons Name: SANJUANA WEST Address: home [address] [place] [address] Name: JAUN MEDEL Address: home [address] [place] [address] Name: LEONARD BEDOLLA Address: [address] Address: home [address] [place] [address] [place]
--- OUTSIDE RECORDS SUMMARY | 2023-07-21 07:57 | XMS_ITS | Continuity of Care Document ---
Author Name Unknown Organization [facility] Address [address] [place] [address]- Care Team Providers Care Spa Associate Name Role Phone Noelle CHAVEZ, Lolis Primary Care Physician [facility] Date(s): 03/03/23 - 04/08/23 [facility] [address] [address]- Attending Physician: Luisana Anne MD Admitting Physician: Luisana Anne MD Referring Physician: Kristan Erickson CNM Allergies, Adverse Reactions, [...] give 325mg per patient preference and re-dose [id number] within 4 hours, if needed. Patient should only receive a total of 650mg of Acetaminophen every 4 hours., Refills 0, Maintenance, Pain , Mild, 1... Start Date: 03/06/23 Status: Ordered aspirin 81 mg oral delayed release tablet 162 mg, 2, tablet, By Mouth, Daily, # 180 tablet, Refills 1, Tot. Refills 1, Maintenance, 03/20/23 16:32:00 EDT, Route to Pharmacy Electronically, [facility]/pharmacy #[id number], Partial fill upon patient request if the [...] give 400mg per patient preference and re-dose [id number] within 8 hours if needed. Patient should [...] information Care Team Personnel Name: Noelle CHAVEZ, Gopalwi Position: Reference Physician Member Role: PCP Address: Address: [address] [place] [address]- Care Team Related Persons Name: SANJUANA WEST Address: home [address] [place] [address] Name: JAUN MEDEL Address: home [address] [place] [address] Name: LEONARD BEDOLLA Address: [address] Address: home [address] [place] [address] Name: NICO DIAZ Address: [address] Address: home [address] [place] [address]
--- OUTSIDE RECORDS SUMMARY | 2023-07-21 07:57 | XMS_ITS | Continuity of Care Document ---
Author Name Unknown Organization [facility] Address [address] [place] [address]- Care Team Providers Care Label Folder Name Role Phone Noelle CHAVEZ, Lolis Primary Care Physician Encounter [facility] Date(s): 08/09/22 - 09/14/[address] [address] Attending Physician: Elizabeth Singh NP Admitting Physician: Elizabeth Singh NP Referring Physician: Elizabeth Singh NP Allergies, Adverse Reactions, Alerts Substance Reaction Severity [...] Reference Physician Member Role: PCP Address: Address: [address] [place] [address] Care Team Related Persons Name: SANJUANA WEST Address: home [address] [place] [address] Name: JAUN MEDEL Address: home [address] [place] [address] Name: LEONARD BEDOLLA Address: Address: home [address] [place] [address] [place]
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
--- OUTSIDE RECORDS SUMMARY | 2023-07-21 07:57 | XMS_ITS | Continuity of Care Document ---
Author Name Unknown Organization [facility] Address [address] [place] [address]- Care Team Providers Care Shoe Lay Out Planner Name Role Phone Deep CHAVEZ, Desiree Mcpherson Primary Care Physician [facility] Date(s): 01/25/22 - 03/05/[address] [address] Attending Physician: Not on Staff, Attending [...] 08/14/94 Given 1Result Comment: [07/06/2007] MFD BY Victoria PlumbOFI 2Admin Note: VIS 07/08/06 3Admin Note: ESTEPHANIA [...] 0 Refills, Maintenance, 06/26/20 13:07:00 EST, Tablet, [facility]/pharmacy #[id number], Partial fill upon patient request if the prescription is for a schedule II opioid drug., 150, cm, 08/21/19 3:43:00 EDT, Height,... Start Date: 06/26/20 Stop Date: 07/01/20 Status: Ordered 1 0 Refills, Maintenance, 01/19/18 21:35:02 EDT Start Date: 01/19/18 Status: Ordered Zithromax Z-Heriberto 250 mg oral tablet See Instructions, as directed on package labeling, # 6 tablet, 0 Refills, Maintenance, 06/26/20 13:07:00 EST, [facility]/pharmacy #[id number], Partial fill upon patient request if the [...] Name: Deep CHAVEZ, Desiree Mcpherson Address: Address: [address] [place] [address] Primary [place] [address]
--- OUTSIDE RECORDS SUMMARY | 2023-07-21 07:57 | XMS_ITS | Continuity of Care Document ---
Author Name Unknown Organization [facility] ter Address [address] [place] [address]- Care Team Providers Care Procedure Rn Name Role Phone Noelle CHAVEZ, Lolis Primary Care Physician Encounter [facility] Date(s): 03/04/23 - 03/04/[address] [address] Discharge Disposition: A-D/C Home Attending Physician: Neo Head MD Admitting Physician: Neo Head MD Referring Physician: Neo Head MD Allergies, Adverse Reactions, Alerts Substance Reaction [...] 03/20/23 16:32:00 EDT, Route to Pharmacy Electronically, [facility]/pharmacy #[id number], Partial fill upon patient request if the prescription is for a schedule II opioid drCarin.. Start Date: 03/20/23 Stop Date: 09/16/23 Status: Ordered ferrous sulfate 325 mg oral tablet 1 tablet = 325 mg, By Mouth, Daily, # 90 tablet, 1 Refills, Maintenance, 01/12/23 19:06:00 EDT, Tablet, [facility]/pharmacy #[id number], Partial fill upon patient request if the prescription is for a schedule II opioid drug., 150, cm, 01/12/23 18:52:00 EDT, Height... Start Date: 01/12/23 Status: Ordered multivitamin, Multivitamins oral tablet, chewable [...] Most recent to oldest [Reference Range]: 1 Weight 114.7 kg (03/04/23 2:18 PM) Temperature [96.8-100.4 DegF] 98.6 DegF (03/04/23 2:18 PM) Temperature Route Oral (03/04/23 2:18 PM) Dry Weight 114.7 kg (03/04/23 2:18 PM) Social History Social History Type Response Smoking Status Never smoker entered on: 01/02/18 Sex Patient Care team information Care Team Personnel Name: Noelle CHAVEZ, Lolis Position: Reference Physician Member Role: PCP Address: Address: [address] [place] [address] Care Team Related Persons Name: SANJUANA WEST Address: home [address] [place] [address] Name: JAUN MEDEL Address: home [address] [place] [address] Name: LEONARD BEDOLLA Address: [address] Address: home [address] [place] [address] [place]
--- OUTSIDE RECORDS SUMMARY | 2023-07-21 07:57 | XMS_ITS | Continuity of Care Document ---
Author Name Unknown Organization [facility] Address [address] [place] [address]- Care Team Providers Care Director Consumer Affairs Name Role Phone Noelle CHAVEZ, Lolis Primary Care Physician [phone] [facility]counter [facility] Date(s): 03/03/23 - 04/02/[address] [address]- Allergies, Adverse Reactions, Alerts Substance Reaction Severity [...] give 325mg per patient preference and re-dose [id number] within 4 hours, if needed. Patient should only receive a total of 650mg of Acetaminophen every 4 hours., Refills 0, Maintenance, Pain , Mild, 1... Start Date: 03/06/23 Status: Ordered aspirin 81 mg oral delayed release tablet 162 mg, 2, tablet, By Mouth, Daily, # 180 tablet, Refills 1, Tot. Refills 1, Maintenance, 03/20/23 16:32:00 EDT, Route to Pharmacy Electronically, [facility]/pharmacy #[id number], Partial fill upon patient request if the [...] give 400mg per patient preference and re-dose [id number] within 8 hours if needed. Patient should [...] Reference Physician Member Role: PCP Address: Address: [address] [place] [address] Care Team Related Persons Name: SANJUANA WEST Address: home [address] [place] [address] Name: JAUN MEDEL Address: home [address] [place] [address] Name: LEONARD BEDOLLA Address: [address] Address: home [address] [place] [address] Name: NICO DIAZ Address: [address] Address: home [address] [place] [address]
--- OUTSIDE RECORDS SUMMARY | 2023-07-21 07:57 | XMS_ITS | Continuity of Care Document ---
Author Name Unknown Organization [facility] Address [address] [place] [address]- Care Team Providers Care Trestle Mainternance Laborer Name Role Phone Noelle CHAVEZ, Lolis Primary Care Physician [phone] [facility]counter [facility] Date(s): 12/16/22 - 01/30/[address] [address]- Attending Physician: Not on Staff, Attending MD [...] 03/20/23 16:32:00 EDT, Route to Pharmacy Electronically, [facility]/pharmacy #[id number], Partial fill upon patient request if the prescription is for a schedule II opioid drBahman. Start Date: 03/20/23 Stop Date: 09/16/23 Status: Ordered ferrous sulfate 325 mg oral tablet 1 tablet = 325 mg, By Mouth, Daily, # 90 tablet, 1 Refills, Maintenance, 01/12/23 19:06:00 EDT, Tablet, [facility]/pharmacy #[id number], Partial fill upon patient request [...] Reference Physician Member Role: PCP Address: Address: [address] [place] [address] Care Team Related Persons Name: SANJUANA WEST Address: home [address] [place] [address] Name: JAUN MEDEL Address: home [address] [place] [address] Name: LEONARD BEDOLLA Address: [address] Address: home [address] [place] [address] [place]
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
--- OUTSIDE RECORDS SUMMARY | 2023-07-21 07:57 | XMS_ITS | Continuity of Care Document ---
Author Name Unknown Organization [facility] ter Address [address] [place] [address]- Care Team Providers Care Mothercraft Nurse Name Role Phone Noelle CHAVEZ, Lolis Primary Care Physician [phone] En[facility] Date(s): 04/05/23 - 05/11/[address] [address] Attending Physician: Elizabeth Singh NP Admitting Physician: [...] give 325mg per patient preference and re-dose [id number] within 4 hours, if needed. Patient should only receive a total of 650mg of Acetaminophen every 4 hours., Refills 0, Maintenance, Pain , Mild, 1... Start Date: 03/06/23 Status: Ordered aspirin 81 mg oral delayed release tablet 162 mg, 2, tablet, By Mouth, Daily, # 180 tablet, Refills 1, Tot. Refills 1, Maintenance, 03/20/23 16:32:00 EDT, Route to Pharmacy Electronically, [facility]/pharmacy #[id number], Partial fill upon patient request if the prescription is for a schedule II opioid dr... Start Date: 03/20/23 Stop Date: 09/16/23 Status: [...] give 400mg per patient preference and re-dose [id number] within 8 hours if needed. Patient should [...] information Care Team Personnel Name: Noelle CHAVEZ, Gopalfl Position: Reference Physician Member Role: PCP Address: Address: [address] [place] [address]- Care Team Related Persons Name: SANJUANA WEST Address: home [address] [place] [address] Name: JAUN MEDEL Address: home [address] [place] [address] Name: LEONARD BEDOLLA Address: [address] Address: home [address] [place] [address] Name: NICO DIAZ Address: [address] Address: home [address] [place] [address]
--- OUTSIDE RECORDS SUMMARY | 2023-07-21 07:57 | XMS_ITS | Continuity of Care Document ---
Author Name Unknown Organization [facility] Address [address] [place] [address]- Care Team Providers Care Gunstock Spray Unit Adjuster Name Role Phone Noelle CHAVEZ, Lolis Primary Care Physician [phone] [facility]counter [facility] Date(s): 06/07/23 - 07/07/[address] [address]- Allergies, Adverse Reactions, Alerts Substance Reaction Severity [...] give 325mg per patient preference and re-dose [id number] within 4 hours, if needed. Patient should only receive a total of 650mg of Acetaminophen every 4 hours., Refills 0, Maintenance, Pain , Mild, 1... Start Date: 03/06/23 Status: Ordered aspirin 81 mg oral delayed release tablet 162 mg, 2, tablet, By Mouth, Daily, # 180 tablet, Refills 1, Tot. Refills 1, Maintenance, 03/20/23 16:32:00 EDT, Route to Pharmacy Electronically, [facility]/pharmacy #[id number], Partial fill upon patient request if the [...] give 400mg per patient preference and re-dose [id number] within 8 hours if needed. Patient should [...] Reference Physician Member Role: PCP Address: Address: [address] [place] [address]- Care Team Related Persons Name: SANJUANA WEST Address: home [address] [place] [address] Name: JAUN MEDEL Address: home [address] [place] [address] Name: LEONARD BEDOLLA Address: Address: home [address] [place] [address] Name: NICO DIAZ Address: [address] Address: home [address] [place] [address] Address: [facility] 0
--- OUTSIDE RECORDS SUMMARY | 2023-07-21 07:57 | XMS_ITS | Continuity of Care Document ---
Author Name Unknown Organization [facility] Address [address] [facility], [address] [place] [address]- Care Team Providers Care Financial Services Auditor Name Role Phone Noelle CHAVEZ, Lolis Primary Care Physician [facility] Date(s): 08/25/22 - 09/24/22 [facility] [employer] [facility] [address] [address] [place], [place] [address] Allergies, Adverse Reactions, Alerts Substance Reaction [...] 09/21/22 16:32:00 EDT, Route to Pharmacy Electronically, [facility]/pharmacy #[id number], Partial fill upon patient request if the prescription is for a schedule II opioid dr... Start Date: 09/21/22 Stop Date: 03/20/23 Status: Ordered ferrous sulfate 325 mg oral tablet 1 tablet = 325 mg, By Mouth, Daily, # 90 tablet, 1 Refills, Maintenance, 08/25/22 22:12:00 EDT, Tablet, [facility]/pharmacy #[id number], Partial fill upon patient request [...] Reference Physician Member Role: PCP Address: Address: [address] [place] [address] Care Team Related Persons Name: SANJUANA WEST Address: home [address] [place] [address] Name: JAUN MEDEL Address: home [address] [place] [address] Name: LEONARD BEDOLLA Address: [address] Address: home [address] [place] [address] [place]
--- OUTSIDE RECORDS SUMMARY | 2023-07-21 07:57 | XMS_ITS | Continuity of Care Document ---
Author Name Unknown Organization [facility] Address [address] [place] [address]- Care Team Providers Care Bench Hand Name Role Phone Noelle CHAVEZ, Lolis Primary Care Physician Encounter [facility] Date(s): 06/08/23 - 07/08/[address] [address] Allergies, Adverse Reactions, Alerts Substance [...] give 325mg per patient preference and re-dose [id number] within 4 hours, if needed. Patient should only receive a total of 650mg of Acetaminophen every 4 hours., Refills 0, Maintenance, Pain , Mild, 1... Start Date: 03/06/23 Status: Ordered aspirin 81 mg oral delayed release tablet 162 mg, 2, tablet, By Mouth, Daily, # 180 tablet, Refills 1, Tot. Refills 1, Maintenance, 03/20/23 16:32:00 EDT, Route to Pharmacy Electronically, [facility]/pharmacy #[id number], Partial fill upon patient request if the [...] give 400mg per patient preference and re-dose [id number] within 8 hours if needed. Patient should [...] Physician Member Role: PCP Address: Address: [address] [place] [address]- Care Team Related Persons Name: SANJUANA WEST Address: home [address] [place] [address] Name: JAUN MEDEL Address: home [address] [place] [address] Name: LEONARD BEDOLLA Address: [address] Address: home [address] [place] [address] Name: NICO DIAZ Address: [address] Address: home [address] [place] [address] Address: [facility]
--- OUTSIDE RECORDS SUMMARY | 2023-07-21 07:57 | XMS_ITS | Continuity of Care Document ---
Author Name Unknown Organization [facility] Address [address] [place] [address]- Care Team Providers Care Knowledge Management Consultant Name Role Phone Noelle CHAVEZ, Lolis Primary Care Physician Encounter [facility] Date(s): 01/18/23 - 04/08/23 [facility] [address] [address]- Attending Physician: Kristan Erickson CNM Admitting Physician: [...] give 325mg per patient preference and re-dose [id number] within 4 hours, if needed. Patient should only receive a total of 650mg of Acetaminophen every 4 hours., Refills 0, Maintenance, Pain , Mild, 1... Start Date: 03/06/23 Status: Ordered aspirin 81 mg oral delayed release tablet 162 mg, 2, tablet, By Mouth, Daily, # 180 tablet, Refills 1, Tot. Refills 1, Maintenance, 03/20/23 16:32:00 EDT, Route to Pharmacy Electronically, [facility]/pharmacy #[id number], Partial fill upon patient request if the [...] give 400mg per patient preference and re-dose [id number] within 8 hours if needed. Patient should [...] Reference Physician Member Role: PCP Address: Address: [address] [place] [address]- Care Team Related Persons Name: SANJUANA WEST Address: home [address] [place] [address] Name: JAUN MEDEL Address: home [address] [place] [address] Name: LEONARD BEDOLLA Address: [address] Address: home [address] [place] [address] Name: NICO DIAZ Address: [address] Address: home [address] [place] [address] [place]
--- OUTSIDE RECORDS SUMMARY | 2023-07-21 07:57 | XMS_ITS | Continuity of Care Document ---
Author Name Unknown Organization [facility] Address [address] [place] [address]- Care Team Providers Care Ticket Clerk Name Role Phone Noelle CHAVEZ, Lolis Primary Care Physician [phone] [facility]counter [facility] Date(s): 03/16/23 - 04/15/[address] [address] Allergies, Adverse Reactions, Alerts Substance Reaction Severity [...] give 325mg per patient preference and re-dose [id number] within 4 hours, if needed. Patient should only receive a total of 650mg of Acetaminophen every 4 hours., Refills 0, Maintenance, Pain , Mild, 1... Start Date: 03/06/23 Status: Ordered aspirin 81 mg oral delayed release tablet 162 mg, 2, tablet, By Mouth, Daily, # 180 tablet, Refills 1, Tot. Refills 1, Maintenance, 03/20/23 16:32:00 EDT, Route to Pharmacy Electronically, [facility]/pharmacy #[id number], Partial fill upon patient request if the [...] give 400mg per patient preference and re-dose [id number] within 8 hours if needed. Patient should [...] Reference Physician Member Role: PCP Address: Address: [address] [place] [address]- Care Team Related Persons Name: SANJUANA WEST Address: home [address] [place] [address] Name: JAUN MEDEL Address: home [address] [place] [address] Name: LEONARD BEDOLLA Address: [address] Address: home [address] [place] [address] Name: NICO DIAZ Address: [address] Address: home [address] [place] [address]
--- OUTSIDE RECORDS SUMMARY | 2023-07-21 07:57 | XMS_ITS | Continuity of Care Document ---
Author Name Unknown Organization [facility] Address [address] [place] [address]- Care Team Providers Care Patient Escort Name Role Phone Noelle CHAVEZ, Lolis Primary Care Physician Encounter [facility] Date(s): 06/04/22 - 07/04/22 [facility] [address] [place] [address] Attending Physician: Nael Ryder Admitting Physician: AdmNael [...] Reference Physician Member Role: PCP Address: Address: [address] [place] [id number] Care Team Related Persons Name: JENNA, SANJUANA Address: home [address] [place] [address] Name: JAUN MEDEL Address: home [address] [place] [address] Name: LEONARD BEDOLLA Address: [address] Address: [address] [address]
--- OUTSIDE RECORDS SUMMARY | 2023-07-21 07:57 | XMS_ITS | Continuity of Care Document ---
Author Name Unknown Organization [facility] Address [address] [place] [address] ve [address] [place] [address]- Care Team Providers Care Automobile Damage Appraiser Name Role Phone Desiree Adame MD Primary Care Physician Encounter [facility] Date(s): 05/18/22 - 05/25/[address] [place] [address]- Attending Physician: Benjamin Olsen Referring Physician: Desiree Adame MD Allergies, Adverse Reactions, Alerts Substance Reaction [...] oldest [Reference Range]: 1 Height 150 cm (05/18/22 9:21 AM) Weight 101.5 kg (05/18/22 9:21 AM) Pulse Rate [55-90 bpm] 73 bpm (05/18/22 9:21 AM) Body Mass Index [18.5-24.99 kg/m2] 45.11 kg/m2 *>HHI* (05/18/22 9:21 AM) Blood Pressure [90-138/55-84 mm Hg] 131/ 86mm Hg (05/18/22 9:21 AM) Temperature [96.8-100.4 DegF] 96.4 DegF *L* (05/18/22 9:21 AM) Blood pressure sites Arm, left (05/18/22 9:21 AM) Temperature Route Temporal (05/18/22 9:21 AM) Weight Obtained Via Standing scale (05/18/22 9:21 AM) Social History Social History Type Response Smoking Status Never smoker entered on: 01/02/18 Sex Patient Care team information Care Team Personnel Name: Desiree Adame MD Position: [facility] Primary Care Physician Member Role: PCP Address: Address: [facility] [place] [address]- Care Team Related Persons Name: SANJUANA WEST Address: home [address] [place] [address] Name: JAUN MEDEL Address: home [address] [place] [address] Name: LEONARD BEDOLLA Address: [address] Address: [address] [address] [place]
--- OUTSIDE RECORDS SUMMARY | 2023-07-21 07:57 | XMS_ITS | Continuity of Care Document ---
Author Name Unknown Organization [facility] Address [address] [place] [address]- Care Team Providers Care Health Sciences Manager Name Role Phone Noelle CHAVEZ, Lolis Primary Care Physician [phone] [facility]counter [facility] Date(s): 01/18/23 - 02/17/[address] [address]- Allergies, Adverse Reactions, Alerts Substance Reaction Severity [...] 03/20/23 16:32:00 EDT, Route to Pharmacy Electronically, [facility]/pharmacy #[id number], Partial fill upon patient request if the prescription is for a schedule II opioid drBahman. Start Date: 03/20/23 Stop Date: 09/16/23 Status: Ordered ferrous sulfate 325 mg oral tablet 1 tablet = 325 mg, By Mouth, Daily, # 90 tablet, 1 Refills, Maintenance, 01/12/23 19:06:00 EDT, Tablet, [facility]/pharmacy #[id number], Partial fill upon patient request if [...] Reference Physician Member Role: PCP Address: Address: [address] [place] [address]- Care Team Related Persons Name: SANJUANA WEST Address: home [address] [place] [address] Name: JAUN MEDEL Address: home [address] [place] [address] Name: LEONARD BEDOLLA Address: Address: home [address] [place] [address] [place]
--- OUTSIDE RECORDS SUMMARY | 2023-07-21 07:57 | XMS_ITS | Continuity of Care Document ---
Author Name Unknown Organization [facility] Address [address] [place] [address]- Care Team Providers Care Ship'S Surveyor Name Role Phone Noelle CHAVEZ, Lolis Primary Care Physician [facility] Date(s): 12/23/22 - 01/22/[address] [address] Allergies, Adverse Reactions, Alerts Substance [...] 03/20/23 16:32:00 EDT, Route to Pharmacy Electronically, [facility]/pharmacy #[id number], Partial fill upon patient request if the prescription is for a schedule II opioid drBahman. Start Date: 03/20/23 Stop Date: 09/16/23 Status: Ordered ferrous sulfate 325 mg oral tablet 1 tablet = 325 mg, By Mouth, Daily, # 90 tablet, 1 Refills, Maintenance, 01/12/23 19:06:00 EDT, Tablet, [facility]/pharmacy #[id number], Partial fill upon patient request if [...] Reference Physician Member Role: PCP Address: Address: [address] [place] [address]- Care Team Related Persons Name: SANJUANA WEST Address: home [address] [place] [address] Name: JAUN MEDEL Address: home [address] [place] [address] Name: LEONARD BEDOLLA Address: Address: home [address] [place] [address] [place]
--- OUTSIDE RECORDS SUMMARY | 2023-07-21 07:57 | XMS_ITS | Continuity of Care Document ---
Author Name Unknown Organization [facility] Address [address] [place] [address] Dr [address] [place] [address]- Care Team Providers Care Virtual Assistant Name Role Phone Noelle CHAVEZ, Lolis Primary Care Physician [phone] [facility] Date(s): 05/09/23 - 06/08/23 [facility] [address] [place] [address]- Attending Physician: Nael Ryder Admitting Physician: AdmtrNael Referring Physician: Admtr ArJsoe Allergies, Adverse Reactions, Alerts Substance Reaction Severity Status amoxicillin rash Unknown Active penicillin Rash Active Immunizations Given and Recorded Vaccine Date Status Refusal Reason Measles/Mumps/Rubella Virus Vaccine 1 03/06/23 Giv en Measles/Mumps/Rubella Virus Vaccine 2 09/30/97 Giv en Measles/Mumps/Rubella Virus Vaccine 3 02/05/95 Giv en influenza virus vaccine, inactivated 07/21/17 Arash rded influenza virus vaccine, inactivated 4 07/06/07 Gi btety tetanus/diphtheria/pertussis, acel(Tdap) 11/10/16 Recorded Tet/diphth/pertussis, acel (oldterm) [...] give 325mg per patient preference and re-dose [id number] within 4 hours, if needed. Patient should only receive a total of 650mg of Acetaminophen every 4 hours., Refills 0, Maintenance, Pain , Mild, 1... Start Date: 03/06/23 Status: Ordered aspirin 81 mg oral delayed release tablet 162 mg, 2, tablet, By Mouth, Daily, # 180 tablet, Refills 1, Tot. Refills 1, Maintenance, 03/20/23 16:32:00 EDT, Route to Pharmacy Electronically, [facility]/pharmacy #[id number], Partial fill upon patient request if the [...] give 400mg per patient preference and re-dose [id number] within 8 hours if needed. Patient should [...] information Care Team Personnel Name: Noelle CHAVEZ, Gopalin Position: Reference Physician Member Role: PCP Address: Address: [address] [place] [address]- Care Team Related Persons Name: SANJUANA WEST Address: home [address] [place] [address] Name: JAUN MEDEL Address: [address] [place] [address] Name: LEONARD BEDOLLA Address: [address] Address: home [address] [place] [address] Name: NCIO DIAZ Address: [address] Address: home [address] [place] [address] [place]
--- OUTSIDE RECORDS SUMMARY | 2023-07-21 07:57 | XMS_ITS | Continuity of Care Document ---
Author Name Unknown Organization [facility] Address [address] [place] [address]- Care Team Providers Care Oil Pit Attendant Name Role Phone Noelle CHAVEZ, Lolis Primary Care Physician [phone] Encounter [facility] Date(s): 03/10/23 - 04/09/[address] [address]- Allergies, Adverse Reactions, Alerts Substance Reaction Severity [...] give 325mg per patient preference and re-dose [id number] within 4 hours, if needed. Patient should only receive a total of 650mg of Acetaminophen every 4 hours., Refills 0, Maintenance, Pain , Mild, 1... Start Date: 03/06/23 Status: Ordered aspirin 81 mg oral delayed release tablet 162 mg, 2, tablet, By Mouth, Daily, # 180 tablet, Refills 1, Tot. Refills 1, Maintenance, 03/20/23 16:32:00 EDT, Route to Pharmacy Electronically, [facility]/pharmacy #[id number], Partial fill upon patient request if the [...] give 400mg per patient preference and re-dose [id number] within 8 hours if needed. Patient should [...] Physician Member Role: PCP Address: Address: [address] [place] [address] Care Team Related Persons Name: SANJUANA WEST Address: home [address] [place] [address] Name: JAUN MEDEL Address: home [address] [place] [address] Name: LEONARD BEDOLLA Address: [address] Address: home [address] [place] [address] Name: NICO DIAZ Address: [address] Address: home [address] [place] [address]
--- OUTSIDE RECORDS SUMMARY | 2023-07-21 07:57 | XMS_ITS | Continuity of Care Document ---
Author Name Unknown Organization [facility] Address [address] [place] [address]- Care Team Providers Care Automobile Contract Clerk Name Role Phone Lolis Drake MD Primary Care Physician [place] [facility] Date(s): 03/09/23 - 04/08/[address] [address]- Allergies, Adverse Reactions, Alerts Substance Reaction Severity [...] give 325mg per patient preference and re-dose [id number] within 4 hours, if needed. Patient should only receive a total of 650mg of Acetaminophen every 4 hours., Refills 0, Maintenance, Pain , Mild, 1... Start Date: 03/06/23 Status: Ordered aspirin 81 mg oral delayed release tablet 162 mg, 2, tablet, By Mouth, Daily, # 180 tablet, Refills 1, Tot. Refills 1, Maintenance, 03/20/23 16:32:00 EDT, Route to Pharmacy Electronically, [facility]/pharmacy #[id number], Partial fill upon patient request if the [...] give 400mg per patient preference and re-dose [id number] within 8 hours if needed. Patient should [...] Reference Physician Member Role: PCP Address: Address: [address] [place] [address] Care Team Related Persons Name: SANJUANA WEST Address: home [address] [place] [address] Name: JAUN MEDEL Address: home [address] [place] [address] Name: LEONARD BEDOLLA Address: [address] Address: home [address] [place] [address] Name: NICO DIAZ Address: [address] Address: home [address] [place] [address]
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
--- OUTSIDE RECORDS SUMMARY | 2023-07-21 07:58 | XMS_ITS | Continuity of Care Document ---
Author Name Unknown Organization [facility] Address [address] [place] [address] [address] [place] [address]- Care Team Providers Care Senior Sustainability Advisor Name Role Phone Lolis Drake MD Primary Care Physician Encounter [facility] Date(s): 03/09/23 - 04/08/23 [facility] [address] [place], [place] [address] Allergies, Adverse Reactions, Alerts Substance [...] give 325mg per patient preference and re-dose [id number] within 4 hours, if needed. Patient should only receive a total of 650mg of Acetaminophen every 4 hours., Refills 0, Maintenance, Pain , Mild, 1... Start Date: 03/06/23 Status: Ordered aspirin 81 mg oral delayed release tablet 162 mg, 2, tablet, By Mouth, Daily, # 180 tablet, Refills 1, Tot. Refills 1, Maintenance, 03/20/23 16:32:00 EDT, Route to Pharmacy Electronically, [facility]/pharmacy #[id number], Partial fill upon patient request if the [...] give 400mg per patient preference and re-dose [id number] within 8 hours if needed. Patient should [...] Reference Physician Member Role: PCP Address: Address: [address] [place] [address]- Care Team Related Persons Name: SANJUANA WEST Address: home [address] [place] [address] Name: JAUN MEDEL Address: home [address] [place] [address] Name: LEONARD BEDOLLA Address: [address] Address: home [address] [place] [address] Name: NICO DIAZ Address: [address] Address: home [address] [place] [address]
--- OUTSIDE RECORDS SUMMARY | 2023-07-21 07:58 | XMS_ITS | Continuity of Care Document ---
Author Name Unknown Organization [facility] Address [address] [place] [address]- Care Team Providers Care Pilot Instructor Name Role Phone Desiree Adame MD Primary Care Physician Encounter [facility] Date(s): 04/01/22 - 04/01/[address] [address]- Discharge Disposition: A-D/C Home Attending Physician: Adolfo Mack MD Admitting Physician: Adolfo Mack MD Referring Physician: Not on Staff, Referring [...] [Reference Range]: 1 2 Height 150 cm (04/01/22 11:41 AM) 150 cm (04/01/22 11:40 AM) Weight 98.8 kg (04/01/22 11:41 AM) 98.8 kg (04/01/22 11:40 AM) Oxygen Saturation [94-100 %] 100 % (04/01/22 1:51 PM) 100 % (04/01/22 11:40 AM) Pulse Rate [55-90 bpm] 72 bpm (04/01/22 1:51 PM) 75 bpm (04/01/22 11:40 AM) Body Mass Index [18.5-24.99 kg/m2] 43.91 kg/m2 *>HHI* (04/01/22 11:40 AM) Blood Pressure [90-138/55-84 mm Hg] 119/ 69mm Hg (04/01/22 1:51 PM) 139/88mm Hg *H* (04/01/22 11:40 AM) Respiratory Rate [16-30 br/min] 16 br/mi n (04/01/22 1:51 PM) 16 br/min (04/01/22 11:40 AM) Temperature [96.8-100.4 DegF] 98 DegF (04/01/22 1:51 PM) 97.4 DegF (04/01/22 11:40 AM) Mode of Delivery (Oxygen) Room air (04/01/22 1:51 PM) Room air (04/01/22 11:40 AM) Temperature Route Temporal (04/01/22 1:51 PM) Temporal (04/01/22 11:40 AM) Dry Weight 98.8 kg (04/01/22 11:41 AM) 98.8 kg (04/01/22 11:40 AM) Weight Obtained Via Standing scale (04/01/22 11:40 AM) Dry Weight Obtained Via Standing scale (04/01/22 11:40 AM) Social History Social History Type Response Smoking Status Never smoker entered on: 01/02/18 Sex Patient Care team information Personnel Name: Deep CHAVEZ, Desiree Mcpherson Address: Address: [address]
--- OUTSIDE RECORDS SUMMARY | 2023-07-21 07:58 | XMS_ITS | Continuity of Care Document ---
Author Name Unknown Organization [facility] Address [address] [place] [address]- Care Team Providers Care Medical Chemist Name Role Phone Noelle CHAVEZ, Lolis Primary Care Physician Encounter [facility] Date(s): 04/14/23 - 05/14/[address] [address] Attending Physician: Nael Ryder Admitting [...] give 325mg per patient preference and re-dose [id number] within 4 hours, if needed. Patient should only receive a total of 650mg of Acetaminophen every 4 hours., Refills 0, Maintenance, Pain , Mild, 1... Start Date: 03/06/23 Status: Ordered aspirin 81 mg oral delayed release tablet 162 mg, 2, tablet, By Mouth, Daily, # 180 tablet, Refills 1, Tot. Refills 1, Maintenance, 03/20/23 16:32:00 EDT, Route to Pharmacy Electronically, [facility]/pharmacy #[id number], Partial fill upon patient request if the [...] give 400mg per patient preference and re-dose [id number] within 8 hours if needed. Patient should [...] Status Never smoker entered on: 01/02/18 Sex Laboratory * Event Display: Non BH Lab Results Authored Date: * Event Display: Non BH Lab Results Authored Date: * Event Display: Non BH Lab Results Authored Date: Radiology * Event Display: Ultrasound Obstetric, Non-BH Authored Date: * Event Display: Ultrasound Obstetric, Non-BH Authored Date: * Event Display: Ultrasound Obstetric, Non-BH Authored Date: * Stacie Pitt: PERFORM Event Display: Radiology Results Scanned Authored Date: [id number] * Stacie Pitt: PERFORM Event Display: Radiology Results Scanned Authored Date: [id number] * Stacie Pitt: PERFORM Event Display: Radiology Results Scanned Authored Date: [id number] Patient Care team information Care Team Personnel Name: Lolis Drake MD Position: Reference Physician Member Role: PCP Address: Address: [address] [place] [address] [address] Care Team Related Persons Name: SANJUANA WEST Address: home [address] [place] [address] Name: JAUN MEDEL Address: home [address] [place] [address] Name: LEONARD BEDOLLA Address: [address] Address: home [address] [place] [address] Name: NICO DIAZ Address: [address] Address: home [address] [place] [address]
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
--- OUTSIDE RECORDS SUMMARY | 2023-07-21 07:58 | XMS_ITS | Continuity of Care Document ---
Author Name Unknown Organization [facility] Address [address] [place] [address]- Care Team Providers Care Roguer Name Role Phone Noelle CHAVEZ, Lolis Primary Care Physician Encounter [facility] Date(s): 01/18/23 - 04/15/[address] [address]- Attending Physician: Not on Staff, Attending MD [...] give 325mg per patient preference and re-dose [id number] within 4 hours, if needed. Patient should only receive a total of 650mg of Acetaminophen every 4 hours., Refills 0, Maintenance, Pain , Mild, 1... Start Date: 03/06/23 Status: Ordered aspirin 81 mg oral delayed release tablet 162 mg, 2, tablet, By Mouth, Daily, # 180 tablet, Refills 1, Tot. Refills 1, Maintenance, 03/20/23 16:32:00 EDT, Route to Pharmacy Electronically, [facility]/pharmacy #[id number], Partial fill upon patient request if the [...] give 400mg per patient preference and re-dose [id number] within 8 hours if needed. Patient should [...] information Care Team Personnel Name: Noelle CHAVEZ, Gopalco Position: Reference Physician Member Role: PCP Address: Address: [address] [place] [address]- Care Team Related Persons Name: SANJUANA WEST Address: home [address] [place] [address] Name: JAUN MEDEL Address: home [address] [place] [address] Name: LEONARD BEDOLLA Address: [address] Address: home [address] [place] [id number] Name: NICO DIAZ Address: [address] Address: home [address] [place] [address]
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
--- OUTSIDE RECORDS SUMMARY | 2023-07-21 07:58 | XMS_ITS | Continuity of Care Document ---
Author Name Unknown Organization [facility] Address [address] [place] [address] [address] [place] [address]- Care Team Providers Care Nuclear Worker Technician Name Role Phone Lolis Drake MD Primary Care Physician Encounter [facility] Date(s): 06/25/22 - 07/02/22 [facility] [address] [place] [address]- Attending Physician: Ron MS,RD,LDN, Mony Dixon Referring [...] Physician Member Role: PCP Address: Address: [address] [place] [address] Care Team Related Persons Name: SANJUANA WEST Address: home [address] [place] [address] Name: JAUN MEDEL Address: home [address] [place] [address] Name: LEONARD BEDOLLA Address: [address] Address: home [address] [place] [id number]
--- OUTSIDE RECORDS SUMMARY | 2023-07-21 07:58 | XMS_ITS | Continuity of Care Document ---
Author Name Unknown Organization [facility] Address [address] [place] [address]- Care Team Providers Care Landscaper Helper Name Role Phone Noelle CHAVEZ, [facility] Primary Care Physician Encounter [facility] Date(s): 10/15/22 - 11/14/22 [facility] [address] [place] [address] Allergies, Adverse Reactions, Alerts Substance Reaction [...] Route to Pharmacy Electronically, [facility]/pharmacy #[id number], Partial fill upon patient request if the prescription is for a schedule II opioid drCarin.. Start Date: 03/20/23 Stop Date: 09/16/23 Status: Ordered aspirin 81 mg oral delayed release tablet 162 mg, 2, tablet, By Mouth, Daily, for 90 days, # 180 tablet, Refills 1, Tot. Refills 1, Hard Stop03/20/23 16:32:00 EDT, 09/21/22 16:32:00 EDT, Route to Pharmacy Electronically, [facility]/pharmacy #[id number],Partial fill upon patient request if the [...] Reference Physician Member Role: PCP Address: Address: [address] [place] [address] Care Team Related Persons Name: SANJUANA WEST Address: home [address] [place] [address] Name: JAUN MEDEL Address: home [address] [place] [address] Name: LEONARD BEDOLLA Address: [address] Address: home [address] [place] [address]
--- OUTSIDE RECORDS SUMMARY | 2023-07-21 07:58 | XMS_ITS | Continuity of Care Document ---
Author Name Unknown Organization [facility] Address [address] [place] [address]- Care Team Providers Care Carbon Brush Maker Name Role Phone Noelle CHAVEZ, Lolis Primary Care Physician Encounter [facility] Date(s): 08/25/22 - 09/24/22 [facility] [address] [place], [place] [address] Allergies, Adverse Reactions, Alerts Substance Reaction Severity [...] 09/21/22 16:32:00 EDT, Route to Pharmacy Electronically, [facility]/pharmacy #[id number], Partial fill upon patient request if the prescription is for a schedule II opioid dr... Start Date: 09/21/22 Stop Date: 03/20/23 Status: Ordered ferrous sulfate 325 mg oral tablet 1 tablet = 325 mg, By Mouth, Daily, # 90 tablet, 1 Refills, Maintenance, 08/25/22 22:12:00 EDT, Tablet, [facility]/pharmacy #[id number], Partial fill upon patient request [...] Physician Member Role: PCP Address: Address: [address] [place] [address] Care Team Related Persons Name: SANJUANA WEST Address: home [address] [place] [address] Name: JAUN MEDEL Address: home [address] [place] [address] Name: LEONARD BEDOLLA Address: [address] Address: home [address] [place] [id number] [place]
--- OUTSIDE RECORDS SUMMARY | 2023-07-21 07:58 | XMS_ITS | Continuity of Care Document ---
Author Name Unknown Organization [facility] Address [address] [place] [address]- Care Team Providers Care Tongue And Groove Machine Feeder Name Role Phone Deep CHAVEZ, Desiree Mcpherson Primary Care Physician Encounter [facility] Date(s): 11/30/21 - 01/27/[address] [address]- Attending Physician: Not on Staff, Attending MD [...] 0 Refills, Maintenance, 06/26/20 13:07:00 EST, Tablet, [facility]/pharmacy #[id number], Partial fill upon patient request if the prescription is for a schedule II opioid drug., 150, cm, 08/21/19 3:43:00 EDT, Height,... Start Date: 06/26/20 Stop Date: 07/01/20 Status: Ordered 1 0 Refills, Maintenance, 01/19/18 21:35:02 EDT Start Date: 01/19/18 Status: Ordered Zithromax Z-Heriberto 250 mg oral tablet See Instructions, as directed on package labeling, # 6 tablet, 0 Refills, Maintenance, 06/26/20 13:07:00 EST, [facility]/pharmacy #[id number], Partial fill upon patient request if the [...]
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
--- OUTSIDE RECORDS SUMMARY | 2023-07-21 07:58 | XMS_ITS | Continuity of Care Document ---
Author Name Unknown Organization [facility] Address [address] [place] [address]- Care Team Providers Care Mold Stacker Name Role Phone Lolis Drake MD Primary Care Physician [phone] Encounter [facility] Date(s): 08/04/22 - 09/25/[address] [address]- Attending Physician: Kristan Erickson CNM Admitting Physician: Kristan Erickson CNM Referring Physician: Lolis Drake MD Allergies, Adverse [...] 09/21/22 16:32:00 EDT, Route to Pharmacy Electronically, [facility]/pharmacy #[id number], Partial fill upon patient request if the prescription is for a schedule II opioid drBahman. Start Date: 09/21/22 Stop Date: 03/20/23 Status: Ordered ferrous sulfate 325 mg oral tablet 1 tablet = 325 mg, By Mouth, Daily, # 90 tablet, 1 Refills, Maintenance, 08/25/22 22:12:00 EDT, Tablet, [facility]/pharmacy #[id number], Partial fill upon patient request [...] Reference Physician Member Role: PCP Address: Address: [address] [place] [address]- Care Team Related Persons Name: SANJUANA WEST Address: home [address] [place] [address] Name: JAUN MEDEL Address: home [address] [place] [address] Name: LEONARD BEDOLLA Address: [address] Address: home [address] [place] [address] [place]
--- OUTSIDE RECORDS SUMMARY | 2023-07-21 07:58 | XMS_ITS | Continuity of Care Document ---
Author Name Unknown Organization [facility] Address [address] [place] [address]- Care Team Providers Care Beer Still Runner Compounder Name Role Phone Noelle CHAVEZ, Lolis Primary Care Physician Encounter [facility] Date(s): 12/15/22 - 01/14/[address] [address]- Allergies, Adverse Reactions, Alerts Substance Reaction Severity [...] EDT, Route to Pharmacy Electronically, [facility]/pharmacy #[id number], Partial fill upon patient request if the prescription is for a schedule II opioid drBahman. Start Date: 03/20/23 Stop Date: 09/16/23 Status: Ordered ferrous sulfate 325 mg oral tablet 1 tablet = 325 mg, By Mouth, Daily, # 90 tablet, 1 Refills, Maintenance, 01/12/23 19:06:00 EDT, Tablet, [facility]/pharmacy #[id number], Partial fill upon patient request if [...] Physician Member Role: PCP Address: Address: [address] [place] [address]- Care Team Related Persons Name: SANJUANA WEST Address: home [address] [place] [address] Name: JAUN MEDEL Address: home [address] [place] [address] Name: LEONARD BEDOLLA Address: Address: home [address] [place] [address] [place]
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
--- OUTSIDE RECORDS SUMMARY | 2023-07-21 07:59 | XMS_ITS | Continuity of Care Document ---
Author Name Unknown Organization [facility] Address [address] [place] [address]- Care Team Providers Care Pipe Buffer Name Role Phone Noelle CHAVEZ, Lolis Primary Care Physician Encounter [facility] Date(s): 02/15/23 - 03/17/[address] [address] Allergies, Adverse Reactions, [...] give 325mg per patient preference and re-dose [id number] within 4 hours, if needed. Patient should only receive a total of 650mg of Acetaminophen every 4 hours., Refills 0, Maintenance, Pain , Mild, 1... Start Date: 03/06/23 Status: Ordered aspirin 81 mg oral delayed release tablet 162 mg, 2, tablet, By Mouth, Daily, # 180 tablet, Refills 1, Tot. Refills 1, Maintenance, 03/20/23 16:32:00 EDT, Route to Pharmacy Electronically, [facility]/pharmacy #[id number], Partial fill upon patient request if the [...] give 400mg per patient preference and re-dose [id number] within 8 hours if needed. Patient should [...] Reference Physician Member Role: PCP Address: Address: [address] [place] [address]- Care Team Related Persons Name: SANJUANA WEST Address: home [address] [place] [address] Name: JAUN MEDEL Address: home [address] [place] [address] Name: LEONARD BEDOLLA Address: [address] Address: home [address] [place] [address] Name: NICO DIAZ Address: [address] Address: home [address] [place] [address]
--- NOTE | 2023-07-21 08:20 | PC.NURSE ---
Patient in preop. States she ate a small side salad yesterday, a couple bites because I felt dizzy . Dr. Carpenter made aware. Case cancelled per him. Patient made aware and notified to call office for reschedule.
--- NOTE | 2023-07-21 15:01 | PHA.MEDREC ---
Pharmacy Consult ? Medication Reconciliation Pharmacy has completed the medication reconciliation. Reviewed med rec done by nursing
== END 2023-07-26 00:01 | disposition home or self-care (01) ==
LOC: HO.PAT
PROVIDERS: PCP Internal Medicine; Visit Provider Surgery
DX: Z01.818 Encounter for other preprocedural examination (principal); E66.01 Morbid (severe) obesity due to excess calories
CPT/HCPCS: 36415; 80053; 80061; 83036; 83525; 84443; 85025; 85610; 85730; 86140; 86850; 86900; 86901

== ENCOUNTER 2023-07-26 08:02 | Inpatient (IN) | payer OTHER, SELFPAY ==
[2023-07-26] VITALS (13 sets, daily range): BP systolic 127–163; BP diastolic 76–96; PULSE 75–89; RESP 14–26; TEMP 36–36.9; O2SAT 95–100; BMI 45.3
[2023-07-26 08:20] LABS: UPreg QC Valid YES; Urine Pregnancy NEGATIVE (NEGATIVE)
[2023-07-26] MEDS: Aprepitant 32 MG/4.4 ML VIAL IVPUSH (08:27)
[2023-07-26] MEDS: Lactated Ringers 1,000 ML 999 ML IV (08:28)
--- NOTE | 2023-07-26 09:30 | HO.ANESPROP2 ---
HPI - Anesthesia Eval Consult details Narrative: 27 yo female patient for EGD, Laparoscopic sleeve gastrectomy, possible diaphragmatic hernia repair, possible ventral hernia repair, possible open PMFSH Active Problems Active Problems: All Active Problems (Updated 05/11/23 @ 21:55 by Warren Dunn MD) H. pylori infection (Acute) Vitamin B1 deficiency (Acute) Vitamin B12 deficiency (Acute) Vitamin D deficiency (Acute) Morbid obesity (Acute) BMI 45.3 Past Medical History Medical History Morbid obesity Family History Family History Mother Hypertension Fibromyalgia Arthritis Diabetes Father Family history unknown Daughter No problems noted. Daughter No problems noted. Son Autism Son No problems noted. Family history of problems with anesthesia: No Surgical History Surgical History No history of previous surgery History of Problems with Anesthesia: No Social History Social History Are you a primary customer care voice consultant to a significant other at home: No Do you presently have visiting nurse or other home services: No Alcohol intake: current Alcohol intake frequency: does not drink Patient Tobacco Use Status: Never used Tobacco Second Hand Smoke Exposure: No Use of substances other than those prescribed or required for medical reasons: No Have you been hit, kicked, punched, or otherwise hurt by someone within the past year? If so, by whom?: No Are you DNR?: No Advance Directives: No (states partner & mother are primary contacts) Advance Directives Information Provided: Yes (as above noted) Advance Directives on File: No Recently lost weight without trying: No Eating poorly because of decreased appetite: No Nutrition Risks: No Nutritional Risk Patient : No FDLMP: 07/14/23 : No Poor oral hygiene: No Meds Allergies Allergy/AdvReac Type Severity Reaction Status Date / Time amoxicillin [AMOXICILLIN] Allergy Intermediate Hives Verified 07/18/23 10:28 (childhood allergy) Penicillins Allergy Intermediate Hives Verified 07/18/23 10:28 (childhood allergy) Active Medications: Current Medications Lactated Ringer's (Lr) 1,000 mls @ 999 mls/hr IV .Q1H1M LASHAY Stop: 07/26/23 10:15 Last Admin: 07/26/23 08:28 Dose: 999 mls/hr Lactated Ringer's (Lr) 1,000 mls @ 100 mls/hr IVCONT .Q10H LASHAY Acetaminophen (Ofirmev) 1,000 mg in 100 mls @ 400 mls/hr IV PREOP ONE Stop: 07/26/23 09:39 Exam Height,Weight and Vital Signs: Height 4 ft 11 in Weight 101.661 kg Last Vital Signs Temp 98.5 F 07/26/23 08:13 Pulse 88 07/26/23 08:13 Resp 18 07/26/23 08:13 BP 127/76 07/26/23 08:13 Pulse Ox 100 07/26/23 08:13 O2 Del Method Room Air 07/26/23 08:13 Pertinent Lab Results Pertinent Lab Results: Laboratory Tests 07/26/23 07/26/23 08:06 08:17 Urine Test NEGATIVE Blood Type O Positive Antibody Screen NEGATIVE Airway Mallampati Class: II TM Dist: >3cm Neck ROM: Full Loose/Missing/Broken Teeth: Yes (Missing tooth top back right. Denies broken or loose teeth ) Heart: RRR Lungs: CTAB Assessment and Plan Assessment Anesthesia Assessment: Anesthesia Plan Discussed and Chart Reviewed Final Anesthetic Review Family History of Problems with Anesthesia: No History of Problems with Anesthesia: No NPO: Yes ASA Class: III Final Preanesthetic Review: No Changes in Pt Med Stat, Meds/Allgs Chart Reviewed, Consent Obtained/Reviewed and Anes Risks/Benef Reviewed Patient Risk: Intermediate Procedure Risk: Intermediate Assessment/Block/Sedation in : Assess/Block/Sedation- Anesthetic Plan Anesthetic Plan: GA Disposition: Standard PACU and Inp. Admit - Standard Bed
--- NOTE | 2023-07-26 09:51 | MHC.SHP ---
Pre-Procedural Eval Section A - 24 Hr Update-Section A only Date of Service: 07/26/23 The patient is an INPATIENT: Yes The patient has been examined within 24 hours of the surgical procedure. The History & Physical has been completed within 30 days and I have reviewed it.: Yes Section B - Complete if H&P > 30 days Chief Complaint: morbid obesity Relevant Family History (Specify if Yes): No Relevant Social History: None Present Medications: None Medical History: No relevant PMH History of Previous Operations: No relevant previous surgery Allergies: Allergies Allergy/AdvReac Type Severity Reaction Status Date / Time amoxicillin [AMOXICILLIN] Allergy Intermediate Hives Verified 07/18/23 10:28 (childhood allergy) Penicillins Allergy Intermediate Hives Verified 07/18/23 10:28 (childhood allergy) Review of Systems Sugical H&P ROS: Negative: Constitution, Cardiovascular, Respiratory, Neurological, Psychiatric, Hem-Onc, Allergic/Immunologic, Gastrointestinal, Genitourinary, Musculoskeletal, Integumentary, Endocrine and Eyes/Ears/Nose/Throat Exam Surgical H&P Exam: Normal: HEENT, Normal: Heart, Normal: Lungs, Normal: Extremities, Normal: Abdomen, Normal: Skin and Normal: Neurological Plan Diagnosis/Plan: Unchanged I have reviewed the history and physical and performed a pertinent physical examination on my patient. No changes have occurred unless specified. Time Spent With Patient Time: Total time managing care of this patient today ____ minutes.
--- NOTE | 2023-07-26 09:51 | PM.OP ---
Brief Operative Note Date of Service: 07/26/23 Pre-op diagnosis: Morbid obesity with comorbidities (see below) Post-op diagnosis: same Procedure: INITIAL PATIENT BMI ON PRESENTATION AT OUR OFFICE: 48.6 kg/m2 LAST BMI BEFORE SURGERY: 45.2 kg/m2 COMORBIDITIES: liver steatosis, liver fibrosis, GERD ?The patient presented to the Weight Management Program with significant obesity that was negatively impacting the patient's comorbidities as listed above.? The program is a phased program with a special focus on preoperative medical weight management to promote substantial weight loss and prepare the patients for the second phase of the program: bariatric surgery. The patient participated in an intensive weekly lifestyle ?intervention and exercise program during which the patient ?has lost between the initial office visit and the last preoperative visit 13 lbs, or 6.4% of initial actual body weight. It was deemed appropriate for the patient to now have bariatric surgery. In light of the current Covid-19 pandemic and the well documented strong association of obesity and increased risk of worse outcomes if infected with Covid-19 (REFERENCES:https://pubmed.ncbi.nlm.nih.gov/25015091/,?https://pubmed.ncbi.nlm.nih.gov/04318781/), any delay in undergoing bariatric surgery may lead to the patient's worsening health condition and increased?risk of more severe Covid-19 disease if infected. In addition a recent?study from [facility] published in [facility] on 06/01/2021 ([email or web address]) found that, among patients with obesity, substantial weight loss achieved with surgery was associated with improved outcomes of COVID-19 infection. The findings suggest that obesity can be a modifiable risk factor for the severity of COVID-19 infection. In addition, the patient met the BMI-criteria for bariatric surgery based on the BMI on initial presentation. The patient should not be penalized for achieving such weight loss because ?it is not sustainable long-term without surgical intervention and it was achieved in preparation for bariatric surgery ?under my direction and based on my published research ([email or web address]).pdf and?https://www.soard.org/article/[email or web address](32)17425-X/pdf) ?that a 10% preoperative weight loss improves long-term weight loss after surgery and reduces perioperative complications.? Insurance carriers such as [facility] have endorsed my recommendations ?and have included in their policies criteria to include a 10% preoperative weight loss requirement. PROCEDURE: Esophago-gastroscopy laparoscopic sleeve gastrectomy and laparoscopic gastropexy INDICATIONS: This is a 27 year-old female who was electively scheduled for laparoscopic, possibly open sleeve gastrectomy. The risks and complications of the procedure were discussed with the patient in advance, particularly the possibility of ; pulmonary embolism; staple line leak; bleeding; GERD; cardiac, pulmonary, or renal complications; as well as long-term problems such as insufficient weight loss, vitamin deficiency, strictures, or ulcers. The patient understood all the risks, and was in agreement to proceed with surgery. DESCRIPTION OF PROCEDURE: After informed consent was obtained from the patient, the patient was given preoperative antibiotics, and was transferred to the operating room. After successful induction of general anesthesia, pneumatic compression devices were placed on both lower extremities. An upper endoscopy was performed next. The oropharynx and esophagus appeared to be within normal limits. There was no diaphragmatic hernia present consistent with the findings of the preoperative upper GI. The stomach was entered. Then after all fluid and air were suctioned and the stomach was fully decompressed, the scope was withdrawn and secured in the mid esophagus. The patient was then prepped and draped in the usual sterile manner, and abdominal access was established at the right upper quadrant with the Rigo technique. A 12 mm blunt port was inserted, and the abdomen was insufflated with CO2 to a pressure of 15 mmHg. Under direct visualization, additional ports were placed, specifically two 5 mm Versi-step ports to the left upper quadrant, and a 5 mm Versi-Step port to the right upper quadrant. 1% lidocaine plain was used to infiltrate all port sites as well as all fascia defects. Following that, the patient was placed in a steep reverse Trendelenburg position. An additional 5 mm port was placed to the right flank for the Mediflex retractor that was used to retract the left lobe of the liver. The gastro-esophageal fat pad was opened with the ultrasonic device (Thaneesherbeat, Olympus) and the anterior esophagus and hiatus were exposed. The angle of His was opened with the ultrasonic device the fundus of the stomach from any diaphragmatic and splenic attachments. I then opened the gastrocolic ligament between the transverse colon and the greater curvature of the stomach with the ultrasonic device to enter the lesser sac and facilitate the ligation of the short gastric vessels. I started at a mid-point along the greater curvature and using the Thunderbeat, all short gastric vessels were divided all the way to the angle of His until the left duane was completely dissected at its entirety. I then divided the gastro-colic ligament distally to a distance of about 3-4 cm proximal to the pylorus. The stomach was then divided transversely with two Endo LUCI-45 purple and four LUCI-6s0 articulating purple loads using the Tenantrex stapler and loads. Every effort was made that the gastric sleeve had a tubular shape and an even caliber throughout. Once the sleeve resection was completed, the staple line of the gastric sleeve was reinforced with Hemoclips. The resected stomach was retrieved without difficulty from the Rigo port. A gastropexy was then performed in order to prevent postoperative GERD and partial gastric volvulus. Several interrupted 2.0 Surgidac sutures were placed between the sleeve's staple line and the previously divided greater omentum and gastro-colic ligament using the Endo-Stitch device. ?An upper endoscopy was performed. There was no narrowing at the GE junction. The scope was easily advanced all the way to the pylorus which was clearly visualized. There was no narrowing anywhere and the sleeve's caliber was even throughout. The sleeve's staple line was inspected and there was no evidence of ischemia, bleeding or dehiscence. At that point the gastroscope was withdrawn from the patient?s mouth while we were decompressing the bowel and the stomach from any remaining air. I looked into the lesser sac to see how the sleeve was situating and it was situating well. There was no bleeding from the staple line, spleen, or short gastric vessels. The Mediflex retractor was removed, and the undersurface of the liver was inspected and there was no bleeding. The patient was placed in supine position. I closed the fascial defect of the 12 mm port site with a figure of eight #1 Polysorb suture. Then 30cc Ropivacaine plain with 10 mg of Dexamethasone were used to infiltrate the fascial closure as well as all skin incisions. At this point, the abdomen was deflated, all ports were removed under direct vision, and no bleeding was noted from any of the port sites. The skin incisions were irrigated with saline and were closed with 4-0 absorbable monofilament sutures. Steri-Strips and OpSites were used to cover all incisions. The patient was extubated and was transferred in stable condition to the recovery room for further care. I was present and performed all ojeda parts of the procedure. Ms. Topete was the assistant film editor. There were no residents to assist with this case. Jatin Dunn MD, PhD, FACS Surgeon: Warren Dunn MD Anesthesia: GETA, local and other (TAP block) Was an Supply Chain Systems Manager used for this Procedure?: No Supply Chain Systems Manager: Ana Topete Estimated blood loss (mL): 10 IV fluids (mL): 2,500 Urine output (mL): 0 (No Knapp to record output) Pathology: other (Stomach) Condition: stable Disposition: PACU
--- NOTE | 2023-07-26 09:53 | P.DS_ITS ---
DS: Providers Provider Date of Service: 07/27/23 Date of admission: 07/26/23 08:02 Primary care physician: Lolis Drake MD DS: Summary Hospital Course Hospital Course: ADMITTING DIAGNOSIS: morbid obesity DISCHARGE DIAGNOSIS: same, s/p laparoscopic sleeve gastrectomy PAST SURGICAL HISTORY: none PROCEDURE: upper endoscopy, laparoscopic sleeve gastrectomy DISCHARGE SUMMARY: History of Present Illness: The patient is a 27 year-old woman with a BMI of 48.6 kg/m2 and associated co- morbidities as described above. The patient had extensive work-up, lost 11 lbs preoperatively and was electively scheduled for laparoscopic, possible open sleeve gastrectomy and gastropexy. Risks and complications of the surgery were discussed with the patient in advance, particularly the possibility of , pulmonary embolism, anastomotic leak, bleeding, bowel injury, GERD, cardiac, renal or pulmonary complications. The patient understood all the risks and was in agreement with the surgical plan. Hospital Course: The patient underwent an uneventful laparoscopic sleeve gastrectomy with gastropexy on the day of admission. Postoperatively, the patient was transferred to the surgical floor. The patient received IV Acetaminophen and IV dilaudid for pain control. Patient was started on bariatric phase 1 diet POD #0. On postoperative day one, the patient was feeling well without nausea, vomiting, fevers, or tachycardia. The patient had some mild incisional pain and the abdomen was soft. On the morning of postoperative day one, the patient was continued on 1 ounce of water or ice every half hour. During the day, the patient did fairly well, having some incisional pain, but able to ambulate adequately and to tolerate liquids well. Since the patient is doing well, we decided that the patient was ready to be discharged. The patient was given instructions to follow-up with me next week and to call my office for any fever over 101, persistent abdominal pain, nausea, vomiting, GERD, symptoms of DVT such as calf tenderness, or leg swelling, or pulmonary embolism such as chest pain or shortness of breath. The patient was also instructed to drink 40-60 ounces of liquids per day using the 1-ounce cups. The patient had been given prescriptions for Tylenol for pain, Zofran prn for nausea, and pantoprazole and carafate previously. The patient was encouraged to ambulate and use the incentive spirometer. The patient was allowed to shower, but no baths, and encouraged to stay active at home. All of these instructions were given to the patient personally. All questions were answered and the patient understood all instructions, the instructions were also given to the patient in print. Time Attestation Discharge coordination time: Less than 30 minutes Quality: Safe Use of Opioids Does Pt have an Active Cancer Diagnosis on the Problem List?: No Quality: Stroke Does the patient have a stroke diagnosis?: No Physical Exam Vital Signs: Vital Signs: Last Vital Signs Temp 98.5 F 07/26/23 08:13 Pulse 88 07/26/23 08:13 Resp 18 07/26/23 08:13 BP 127/76 07/26/23 08:13 Pulse Ox 100 07/26/23 08:13 O2 Del Method Room Air 07/26/23 08:13 BMI result Body Mass Index 45.3 DS: Data Data Completed and Pending Labs on day of discharge: Laboratory Results - last 24 hr 07/26/23 07/26/23 08:06 08:17 Urine Test NEGATIVE Blood Type O Positive Antibody Screen NEGATIVE Discharge Plan Discharge Anticipated Discharge Date/Time: 07/27/23 10:52 Patient Disposition: Home, Self-Care Discharge Diagnosis: s/p sleeve gastrectomy Referrals: Lolis Drake MD [Primary Care Provider] - 1 Week Discharge Medications: Continued pantoprazole 40 mg tablet,delayed release (DR/EC) 40 mg PO DAILY Qty: 90 0RF sucralfate 100 mg/mL suspension 10 ml PO BID Qty: 600 2RF ondansetron 4 mg tablet,disintegrating 4 mg PO Q12H Qty: 20 0RF Rx Instructions: Only take one every 12 hours as needed if you have nausea Discontinued cholecalciferol (vitamin D3) 125 mcg (5,000 unit) capsule 125 mcg PO DAILY Qty: 30 2RF mecobalamin (vitamin B12) 1,000 mcg tablet,disintegrating 1,000 mcg sublingual DAILY Qty: 30 2RF Rx Instructions: place tablet under tongue and allow to dissolve for at least30 secs before swallowing thiamine HCl (vitamin B1) 100 mg tablet 100 mg PO DAILY Qty: 30 2RF bismuth subsalicylate 262 mg tablet,chewable 2 tab PO QID 14 Days Qty: 112 0RF Discharge Orders: Discharge Order (Routine); Ordered 07/27/23 Ordered By: Warren Dunn Activity on Discharge: No heavy lifting Stand Alone Forms: Patient Portal Discharge page Care Plan Goals: weight loss Health Concerns: moprbid obesity Plan of Treatment: No tub baths, sex or returning to work until discussed at first post op appointment. No exercise, alcohol, tobacco or illegal drug use. Continue to use incentive spirometer hourly while awake. Walk in home for 5- 10 minutes every 2 hours during the first week. Continue phase 1 diet today and start phase 2 diet tomorrow morning. Follow all instructions in the bariatric handbook and call with any questions. 1. Please call your doctor or come back to the emergency room should any new symptoms arise. 2. You will receive a courtesy call from [facility] 24-48 hours after discharge. 3. Activity: abstain from alcohol, practice limited stair climbing, no bending, no driving, no exercise, no illicit substances, no lifting, no sex, no tub bath, no work. 4. Diet: continue as discussed with bariatric team.. 5. Dressing Change/Wound Care: Do not change or remove surgical dressings unless they are wet or soiled. 6. Call your doctor if: - Your temperature exceeds 101.5 F - You experience excessive pain or swelling - You have an unexpected reaction to medication - You have excessive bleeding - You experience continued vomiting/nausea - Your incision begins to separate - Your incision shows signs of infection such as increased redness, swelling, excessive pain, heat, or drainage (light blood or clear fluid is normal) 7. General instructions: No lifting greater than 5 lbs for 1 week and not more than 20lbs the next 3?weeks. No driving until seen at the office in 5-7 days after surgery. If you do not move your bowels in the next 2 days, please tell?Dr. Dunn. Please walk around your home every hour or two to prevent blood clots from forming in your legs. You do not need to wake from sleeping to walk. Please sleep in a bed or couch to prevent kinking at the hips and knees. Please take your incentive spirometer (your lung management expert) home with you and use it for the next few days to prevent pneumonia. You may shower, no hot tubs, baths or swimming pools.?Please follow the post op diet instructions you are?given by Dr Stone carvalho? and text me daily at 5-6pm for an update.?If you h ave any issues or concerns or questions please communicate this to him via text.? The Celebrate shakes have all of the bariatric vitamins you need if you consume these shakes. If you are drinking other protein shakes, you will need to purchase the Celebrate multivitamins and calcium that are available in the hospital gift shop on the first floor of the main hospital.??Do not take anything without first discussing with Dr Dunn. Please make sure you are consuming at least 40 ounces of fluids per day starting the?day AFTER your discharge from the hospital. Always drink 1-2 ml per minute using the 5ml?syringe. If you drink faster you may experience?bloating,?gas pain, burping, nausea or heartburn. In that case please slow down your pace and use the syringe to?understand better the?proper?pace and volume of drinking. Do not hesitate to contact the office with any questions at . The patient's medical history has been reviewed and they are considered low risk for post op DVT and therefore DVT prophylaxis is not considered necessary. Travel after surgery was reviewed. The patient has not disclosed any travel plans during the first 30 days after surgery and they have been advised that within the first 30 days after surgery any bus, plane, train or car travel over 2 hours in duration is contraindicated due to the possibility of developing blood clots from immobility. Any travel, needs to include periods of ambulation of 10 minutes in duration every 2 hours. The patient was instructed to discuss any plans for travel during this period with their bariatric surgeon. Assessment: stable, post op sleeve gastrectomy Discharge Date/Time: 07/27/23 09:01
--- NOTE | 2023-07-26 09:56 | P.PNGS_ITS ---
Subjective Subjective Date of Service: 07/27/23 Interval history: Feels well. Mild incisional pain. She is tolerating phase 1 bariatric diet Physical Exam 2 Vital Signs: Vital Signs: Last Vital Signs Temp 98.5 F 07/26/23 08:13 Pulse 88 07/26/23 08:13 Resp 18 07/26/23 08:13 BP 127/76 07/26/23 08:13 Pulse Ox 100 07/26/23 08:13 O2 Del Method Room Air 07/26/23 08:13 BMI result Body Mass Index 45.3 GI: Inspection: Yes normal to inspection, Yes incision (clean, dry and intact) and Yes obesity Palpation (GI): Soft to palpation Extrem: Right lower extremity: normal to inspection (no calf tenderness) L eft lower extremity: normal to inspection (no calf tenderness) Objective Data Active Medications Lactated Ringer's (Lr) 1,000 mls @ 999 mls/hr IV .Q1H1M LASHAY Stop: 07/26/23 10:15 Last Admin: 07/26/23 08:28 Dose: 999 mls/hr Documented By: JORGE Lactated Ringer's (Lr) 1,000 mls @ 100 mls/hr IVCONT .Q10H [facility] Labs 07/27/23 05:46 07/27/23 05:46 Labs: Laboratory Results - last 24 hr 07/26/23 07/26/23 08:06 08:17 Urine Test NEGATIVE Blood Type O Positive Antibody Screen NEGATIVE Procedures Date of Service Date of Service: 07/27/23 Progress Note: A&P Assessment and plan (1) Morbid obesity: Status: Acute Assessment and Plan: s/p laparoscopic sleeve gastrectomy and gastropexy Doing well Will check am labs and if OK the patient will be discharged home (2) GERD (gastroesophageal reflux disease): Status: Acute (3) Steatosis, liver: Status: Acute (4) Liver fibrosis: Status: Acute (5) S/P laparoscopic sleeve gastrectomy: Status: Acute Time Spent With Patient Time: Total time managing care of this patient today ____ minutes. Quality Stroke Does the patient have a stroke diagnosis?: No VTE Prior VTE?: No VTE Risk Level:: Surgical - moderate VTE Device Contraindication: N/A - Device Ordered VTE Drug Contraindication: Treatment Not Indicated
[2023-07-26 12:53] LABS: Hematocrit 34.8 % (37.0-47.0); Hemoglobin 10.6 g/dl (12.0-16.0)
[2023-07-26 13:06] LABS: Anion Gap 13 (12-20); Blood Urea Nitrogen 8 mg/dL (9-16); Calcium 8.3 mg/dL (8.4-10.2); Carbon Dioxide 24 mmol/L (22-29); Chloride 103 mmol/L (96-108); Creatinine Clr Calc Pharmacy 140.7; Estimated Glomerular Filt Rate > 60; Glucose Random 90 mg/dL (60-115); Potassium 3.9 mmol/L (3.3-5.1); Sodium 136 mmol/L (135-145)
[2023-07-26] MEDS: fentaNYL citrate/PF 100 MCG/2 ML VIAL 25 MCG IVPUSH (13:35)
[2023-07-26] MEDS: Famotidine/PF 20 MG/2 ML VIAL IVPUSH ×2 (14:32→20:56)
[2023-07-26] MEDS: Lactated Ringers 1,000 ML 100 ML IVCONT ×2 (14:35→22:19)
[2023-07-26] MEDS: Acetaminophen 1,000 MG/100 ML PIGGYBACK 16.7 MG IV ×2 (14:35→20:55)
[2023-07-26] MEDS: 0.9 % Sodium Chloride Flush 3 ML SYRINGE IVFLUSH (20:57)
[2023-07-27] MEDS: Acetaminophen 1,000 MG/100 ML PIGGYBACK 16.7 MG IV (02:48)
[2023-07-27 03:38] VITALS: BP 160/83; PULSE 82; RESP 16; TEMP 36.1; O2SAT 96
[2023-07-27 06:28] LABS: MANUAL DIFF FLAG NO
[2023-07-27 06:34] LABS: Basophils Percent Auto 0.1 % (0-2); Hematocrit 37.9 % (37.0-47.0); Hemoglobin 11.5 g/dl (12.0-16.0); Imm Gran Abs Auto 0.05 X10*3/uL (0.00-0.03); Imm Gran Pct Auto 0.5 % (0.0-0.4); Lymphocytes Percent Auto 10.3 % (20-40); Mean Corpuscular HGB Conc 30.3 g/dl (31.0-35.0); Mean Corpuscular Hemoglobin 21.6 pg (27.0-33.0); Mean Corpuscular Volume 71.1 fL (80.0-98.0); Mean Platelet Volume 11.7 fL (9.4-12.3); Monocytes Absolute Auto 0.3 X10*3/uL (0.1-1.2); Monocytes Percent Auto 2.9 % (2-11); Neutrophils Absolute Auto 8.2 x10*3/uL (2.0-8.3); Neutrophils Percent Auto 86.2 % (45-73); Platelet Count 227 X10*3/uL (160-400); Red Blood Count 5.33 X10*6/uL (4.20-5.50); Red Cell Distribution Width 13.9 % (11.0-16.0); White Blood Count 9.5 X10*3/uL (4.8-10.8)
[2023-07-27 06:43] LABS: Anion Gap 17 (12-20); Blood Urea Nitrogen 4 mg/dL (9-16); Carbon Dioxide 18 mmol/L (22-29); Chloride 104 mmol/L (96-108); Creatinine Clr Calc Pharmacy 140.7; Estimated Glomerular Filt Rate > 60; Glucose Random 105 mg/dL (60-115); Potassium 4.3 mmol/L (3.3-5.1); Sodium 135 mmol/L (135-145)
[2023-07-27] MEDS: Famotidine/PF 20 MG/2 ML VIAL IVPUSH (07:03)
[2023-07-27 07:51] VITALS: BP 129/63; PULSE 79; RESP 14; TEMP 36.1; O2SAT 96
--- NOTE | 2023-07-27 08:32 | MHC.CM.PN ---
CM MET WITH PT AT BEDSIDE. PT IS INDEPENDENT AT BASELINE. PCP DR. ARRIAZA. PT HAS BEEN MEDICALLY CLEARED FOR DC HOME , NO SERVICES. PT HAS OWN RIDE HOME.
--- NOTE | 2023-07-27 18:12 | HO.POSTANES ---
Post Anesthesia Evaluation Post Anesthesia Evaluation Date of Service: 07/26/23 Vital Signs: Vital Signs Temp Pulse Resp BP Pulse Ox O2 Del Method 07/27/23 07:51 97 F 79 14 129/63 96 Room Air Anesthesia: General Endotracheal-GETA Mental Status: Awake Pain Control: Satisfactory Nausea/Vomiting: None Hydration: Adequate Anesthesia-Related Issues: No Anes. Related Issues
== END 2023-07-27 09:01 | disposition home or self-care (01) | DRG 403 ==
LOC: HO.SSSA 09:52 → HO.S3 13:16
PROVIDERS: Physician Assistant; Admitting Provider Surgery; PCP Internal Medicine; Visit Provider Surgery
PROC: 0DB64Z3 Excision of Stomach, Percutaneous Endoscopic Approach, Vertical (ICD-10-PCS; CPT 43845; principal; 2023-07-26 10:10)
DX: E66.01 Morbid (severe) obesity due to excess calories (principal); K74.00 Hepatic fibrosis, unspecified; K21.9 Gastro-esophageal reflux disease without esophagitis; Z68.42 Body mass index [BMI] 45.0-49.9, adult; K76.0 Fatty (change of) liver, not elsewhere classified; Z79.899 Other long term (current) drug therapy
CPT/HCPCS: 36415; 80048; 81025; 85014; 85018; 85025; 86850; 86900; 86901; 88305; 88307; 88342; A4649; C9088; C9145; J0131; J1100; J1170; J1956; J2250; J2405; J2704; J2795; J3010; J7120

== ENCOUNTER → 2023-07-26 08:02 | Outpatient (BNV) | payer OTHER, SELFPAY | PROVIDERS: Admitting Provider Surgery; PCP Internal Medicine; Visit Provider Surgery | DX: E66.01 Morbid (severe) obesity due to excess calories (principal); Z68.42 Body mass index [BMI] 45.0-49.9, adult | CPT/HCPCS: 43659; 43775; 99024 ==

== ENCOUNTER 2023-08-02 10:23 | Outpatient (AMB) | payer OTHER, SELFPAY ==
--- NOTE | 2023-08-02 10:48 | A.OFFVIS_ITS ---
Intake VS Expanded 08/02/23 10:57 BP 142/80 H Blood Pressure Location Rt brachial Blood Pressure Position Sitting Pulse 78 Pulse Source Pulse Oximeter Temp 98.0 F Temperature Source Temporal Artery Scan Pulse Oximetry 99 Oxygen Delivery Method Room Air Height 4 ft 11 in Weight 218 lb BMI 44.0 Body Fat % 48.8 Body Fat Mass 106.2 Fat Free Mass 111.6 Visceral Fat Rating 13.0 Body Water % 36.8 Body Water Mass 80.2 Muscle Mass/Score 105.8 Basal Metabolic Rate/Score 1,630 Intake Visit Reasons: (OV) PO LSG 07/26/23 Allergies amoxicillin [AMOXICILLIN] Allergy (Intermediate, Verified 08/02/23 10:50) Hives (childhood allergy) Penicillins Allergy (Intermediate, Verified 08/02/23 10:50) Hives (childhood allergy) HPI HPI Comments History of Present Illness Details Patient is a pleasant 27-year-old female who returns in follow-up. She is 7 days post sleeve gastrectomy performed on 07/26/[address] Dunn. She is tolerating 3 celebrate 4 in 1 shakes with 1 scoop each and approximately 40-50 oz of fluids per day. She is moved her bowels and has no complaints today. [facility] Medical History (Updated 07/28/23 @ 00:03 by Julienne Jefferson) Morbid obesity Surgical History (Updated 08/02/23 @ 10:50 by Ondina South CMA) S/P laparoscopic sleeve gastrectomy Family History Mother Hypertension Fibromyalgia Arthritis Diabetes Father Family history unknown Daughter No problems noted. Daughter No problems noted. Son Autism Son No problems noted. Social History Household Members: Significant Other Housing: Apartment Are you a primary patient care coordinator to a significant other at home: No Do you presently have visiting nurse or other home services: No Alcohol intake: current Alcohol intake frequency: does not drink Patient Tobacco Use Status: Never used Tobacco Second Hand Smoke Exposure: No Physical Exam Vital Signs: Last Vital Signs Temp 98.0 F 08/02/23 10:57 Pulse 78 08/02/23 10:57 BP 142/80 H 08/02/23 10:57 Pulse Ox 99 02/27/24 10:57 Oxygen Delivery Method Room Air 08/02/23 10:57 BMI result Body Mass Index 44.0 GI Inspection: Yes incision (Clean, dry, intact.) Assessment & Plan Assessment & Plan (1) S/P laparoscopic sleeve gastrectomy: Code(s): Z98.84 - Bariatric surgery status Plan: POD 7 s/p LSG on 07/26/[address] Dunn Weight loss prior to surgery was 17.2 pounds or []7.1 % TBWL. Original weight on 04/13/2023 was 240.7 pounds and op weight was 223.5 pounds. Be sure to text Dr Dunn exactly 1 week after surgery your weight from your home scale so he can adjust your meal plan. Continue meal plan until f/u w Delisa in 2 weeks May shower, no submersion in bath for another week Continue abdominal binder with activity and exercise for the next 2 weeks. Exercise prior to surgery was treadmill, may resume No abdominal exercises for 6 weeks post operatively Will be emailed link to post op video for review Reminded of the pace of drinking, 2 mL per minute, 1 oz/15 min. Coding Level of Care Code Global (54002) Diagnoses S/P laparoscopic sleeve gastrectomy Z98.84
[2023-08-02 10:57] VITALS: BP 142/80; PULSE 78; TEMP 36.7; O2SAT 99; BMI 44.0
== END 2023-08-02 11:28 | disposition home or self-care (01) ==
PROVIDERS: Visit Provider Physician Assistant Surgical
DX: E66.01 Morbid (severe) obesity due to excess calories (principal); Z68.41 Body mass index [BMI] 40.0-44.9, adult; Z90.3 Acquired absence of stomach [part of]; Z98.84 Bariatric surgery status
CPT/HCPCS: 99024

== ENCOUNTER → 2023-08-02 10:23 | Outpatient (BNVA) | payer OTHER, SELFPAY | PROVIDERS: Visit Provider Physician Assistant Surgical | DX: Z48.815 Encounter for surgical aftercare following surgery on the digestive system (principal); Z98.84 Bariatric surgery status | CPT/HCPCS: 99212 ==